=== PATIENT | male | born 1970 | race African-American/Black ===

== ENCOUNTER 2016-09-07 12:29 | Emergency (ER) | payer MEDICAID ==
[~2016-09-07] VITALS: Ht 167.6 cm; Wt 120.0 kg
[~2016-09-07 12:29] MED LIST: CIPR500T4 PO; LORTA5 PO; METR-1 PO
[2016-09-07 12:32] VITALS: BP 151/103; PULSE 122; RESP 20; TEMP 98.1; O2SAT 93
--- NOTE | 2016-09-07 12:58 | PD ---
HPI Chief Complaint: Musculoskeletal Complaint Time Seen by Provider: 12:58 Travel History International Travel<30 days: No Contact w/Intl Traveler<30days: No Traveled to known affect area: No History of Present Illness HPI 46-year-old male presents to the emergency department for evaluation of right upper arm injury that occurred just prior to arrival. Patient states he was lifting heavy furniture when he felt a pull in his right arm. He denies a traumatic injury. Patient denies any fevers or chills. He states this occurred just prior to arrival. Patient has not tried anything over-the- counter for his pain. He denies any loss of sensation. Patient reports no chronic medical problems. He states he takes no prescribed medications. Patient denies any other complaints at this time. PFSH Past Medical History Diabetes: No Diminished Hearing: No Gastrointestinal Disorders: Yes (HX GI BLEED; ANAL FISSURE) Genitourinary: No Hypertension: Yes Musculoskeletal: Yes (per hx..LIGAMENT INJURIES JHON ANKLES, RT HAND;FX RT ANKLE RT. HAND) Psychiatric: Yes (schizophrenia) Reproductive: No Immunizations Current: Yes Schizophrenia: Yes Social History Alcohol Use: No (PT DENIES) Tobacco Use: No (PT DENIES) Substance Use: No (PT DENIES) Allergies-Medications (Allergen,Severity, Reaction): Coded Allergies: No Known Allergies (Verified , 01/08/16) Reported Meds & Prescriptions Reported Meds & Active Scripts Active Robaxin (Methocarbamol) 750 Mg Tab 750 Mg PO TID PRN Ibuprofen 600 Mg Tab 600 Mg PO TID PRN Ney 5-325 mg (Hydrocodone-Acetaminophen 5-325 mg) 1 Tab 1 Tab PO Q6H PRN Flagyl (Metronidazole) 500 Mg Tab 500 Mg PO BID Cipro (Ciprofloxacin HCl) 500 Mg Tab 500 Mg PO BID 7 Days Review of Systems Except as stated in HPI: all other systems reviewed are Neg Physical Exam Narrative GENERAL: Well-developed well-nourished male patient, ambulatory. Afebrile. SKIN: Warm and dry. Tissues are soft to the right upper arm. Patient has tenderness over the right biceps muscle. HEAD: Normocephalic. Atraumatic. EYES: No scleral icterus. No injection or drainage. NECK: Supple, trachea midline. No JVD or lymphadenopathy. CARDIOVASCULAR: Regular rate and rhythm without murmurs, gallops, or rubs. Right radial pulse is 2+. RESPIRATORY: Breath sounds equal bilaterally. No accessory muscle use. Lungs sounds are clear to auscultation. GASTROINTESTINAL: Abdomen soft, non-tender, nondistended. MUSCULOSKELETAL: No cyanosis, or edema. Patient has full range of motion of all joints of the right upper extremity. He has full sensation to the distal right upper extremity. He has a normal grasp strength in the right hand. No deformity BACK: Nontender without obvious deformity. No CVA tenderness. Data Data Last Documented VS Vital Signs Date Time Temp Pulse Resp B/P Pulse Ox O2 Delivery O2 Flow Rate FiO2 09/07/16 13:10 94 16 168/89 99 09/07/16 12:32 98.1 Room Air Orders Ibuprofen (Motrin) (09/07/16 13:00) Methocarbamol (Robaxin) (09/07/16 13:00) Splint Or Brace Apply/Monitor (09/07/16 12:58) MDM Medical Decision Making Medical Screen Exam Complete: Yes Emergency Medical Condition: Yes Medical Record Reviewed: Yes Differential Diagnosis Muscle strain versus muscle spasm versus muscle tear Narrative Course 46-year-old male presents to the emergency department for evaluation of right biceps muscle strain that occurred just prior to arrival. He denies any traumatic injury. Physical exam is reassuring. There is no evidence of bony injury on exam. Tissues are soft and there is no evidence of a compartment syndrome. Patient is instructed to ice, rest. He will be given a sling for comfort. He is instructed to do range of motion exercises to prevent any complications. He will be discharged with a prescription for ibuprofen and Robaxin. He is encouraged to follow up with a primary care physician or orthopedist if pain continues or worsens. Patient is agreeable. Diagnosis Primary Impression: Strain of right biceps muscle Qualified Code: S46.111A - Strain of right biceps muscle, initial encounter Referrals: Primary Care Physician call for appointment Patient Instructions: General Instructions, Muscle Strain (ED) Departure Forms: Tests/Procedures, Work Release Enter return to work date: Sep 09, 2016 Additional Instructions: Ice for 20 minutes 4-5 times daily. Wear sling for comfort. Make sure you do range of motion exercises. Take ibuprofen as instructed as needed with food for pain. Take Robaxin as directed as needed. Follow-up with a primary care physician or orthopedist if pain continues or worsens. Return to the emergency department for any acute worsening of symptoms. Med/Other Pt SpecificInfo: Prescription(s) given Scripts Methocarbamol (Robaxin)750 Mg [id number] Mg PO TID PRN (MUSCLE SPASM) #21 TAB Ref 0 Prov:Katie Negrete 09/07/16 Ibuprofen 600 Mg [id number] Mg PO TID PRN (PAIN SCALE 1 TO 10) #21 TAB Ref 0 Prov:Katie Negrete 09/07/16 Disposition: 01 DISCHARGE HOME Condition: Stable Katie Negrete Sep 07, 2016 12:58
[2016-09-07] MEDS ORDERED: METHOCARBAMOL 500 MG TAB PO ONE (13:00)
[2016-09-07] MEDS ORDERED: IBUPROFEN 600 MG TAB PO ONE (13:00)
[2016-09-07] MEDS ORDERED: IBUP-232 PO (13:04)
[2016-09-07] MEDS ORDERED: ROBA750T PO (13:04)
[2016-09-07 13:10] VITALS: BP 168/89
== END 2016-09-07 13:16 | disposition home or self-care (01) ==
LOC: NEPB 12:29
DX: S46.811A Strain of other muscles, fascia and tendons at shoulder and upper arm level, right arm, initial encounter (principal); I10 Essential (primary) hypertension; F20.9 Schizophrenia, unspecified; X50.0XXA Overexertion from strenuous movement or load, initial encounter; Y93.89 Activity, other specified; Y92.89 Other specified places as the place of occurrence of the external cause; Y99.8 Other external cause status
CPT/HCPCS: 99283

== ENCOUNTER 2017-01-28 08:51 | Emergency (ER) | payer MEDICAID ==
[~2017-01-28] VITALS: Ht 167.6 cm; Wt 120.0 kg
[~2017-01-28 08:51] MED LIST changes: +IBUP-232 PO; +ROBA750T PO
[2017-01-28 08:53] VITALS: BP 160/102; PULSE 102; RESP 20; TEMP 98.8; O2SAT 98
[2017-01-28 08:57] VITALS: PULSE 96; RESP 18
--- NOTE | 2017-01-28 09:12 | PD ---
HPI Chief Complaint: Cold / Flu Symptoms Time Seen by Provider: 09:00 Travel History International Travel<30 days: No Contact w/Intl Traveler<30days: No Traveled to known affect area: No History of Present Illness HPI 46-year-old male with no significant past medical history presents for evaluation of cough. Symptoms started 1 week ago. The cough is productive with yellow phlegm. He has had occasional blood-tinged sputum production. He he has been using [id number] NyQuil but symptoms persist which prompted evaluation. He denies nausea, vomiting, chest pain or shortness of breath, fevers or chills, abdominal pain, flank pain, melena, right red blood per rectum , leg pain or swelling, anticoagulant use, NSAID use, history of DVT or PE. No sick contacts. No recent travel. No other complaints. PFSH Past Medical History Diabetes: No Diminished Hearing: No Gastrointestinal Disorders: Yes (HX GI BLEED; ANAL FISSURE) Genitourinary: No Hypertension: Yes Musculoskeletal: Yes (per hx..LIGAMENT INJURIES JHON ANKLES, RT HAND;FX RT ANKLE RT. HAND) Psychiatric: Yes (schizophrenia) Reproductive: No Immunizations Current: Yes Schizophrenia: Yes Social History Alcohol Use: No (PT DENIES) Tobacco Use: No (PT DENIES) Substance Use: No (PT DENIES) Allergies-Medications (Allergen,Severity, Reaction): Coded Allergies: No Known Allergies (Verified , 01/28/17) Reported Meds & Prescriptions Reported Meds & Active Scripts Active Tessalon Perles (Benzonatate) 100 Mg Cap 200 Mg PO TID PRN Robaxin (Methocarbamol) 750 Mg Tab 750 Mg PO TID PRN Ibuprofen 600 Mg Tab 600 Mg PO TID PRN Review of Systems Except as stated in HPI: all other systems reviewed are Neg Physical Exam Narrative GENERAL: Well-developed well-nourished male in no acute distress SKIN: Warm and dry. HEAD: Atraumatic. Normocephalic. EYES: Pupils equal and round. No scleral icterus. No injection or drainage. ENT: No nasal bleeding or discharge. Mucous membranes pink and moist. NECK: Trachea midline. No JVD. CARDIOVASCULAR: Regular rate and rhythm. No murmur appreciated. RESPIRATORY: No accessory muscle use. Clear to auscultation. Breath sounds equal bilaterally. GASTROINTESTINAL: Abdomen soft, non-tender, nondistended. Hepatic and splenic margins not palpable. MUSCULOSKELETAL: No obvious deformities. No edema NEUROLOGICAL: Awake and alert. No obvious cranial nerve deficits. Motor grossly within normal limits. Normal speech. PSYCHIATRIC: Appropriate mood and affect; insight and judgment normal. Data Data Last Documented VS Vital Signs Date Time Temp Pulse Resp B/P Pulse Ox O2 Delivery O2 Flow Rate FiO2 01/28/17 08:57 96 18 01/28/17 08:53 98.8 160/102 98 Room Air Orders Chest, Single Ap (01/28/17 ) [facility] Medical Decision Making Medical Screen Exam Complete: Yes Emergency Medical Condition: Yes Medical Record Reviewed: Yes Differential Diagnosis Bronchitis, bronchiectasis, pneumonia, PE, pneumothorax Narrative Course This is a 46-year-old otherwise healthy male who presents with 1 week of cough with yellow sputum production, occasional blood-tinged sputum. He appears well. His lungs sound clear. He is not tachycardic, pale, hypoxic, tachypneic. His abdomen is soft and nontender. I suspect bronchitis as the etiology of his symptoms. Chest x-ray was ordered to assess for pneumonia and it was negative. The patient is being discharged with cough suppressant medication. Diagnosis Primary Impression: Bronchitis Additional Instructions: Stay well-hydrated and well-nourished. Medication as needed. Follow-up with primary care physician and return for any emergent medical conditions. Med/Other Pt SpecificInfo: Prescription(s) given Scripts Benzonatate (Tessalon Perles)100 Mg [id number] Mg PO TID PRN (COUGH) #30 CAP Ref 0 Prov:William Solo MD 01/28/17 Disposition: 01 DISCHARGE HOME Condition: Stable Mayank Zuluaga Jan 28, 2017 09:11
--- NOTE | 2017-01-28 09:40 | RADRPT ---
EXAM DATE/TIME: 01/28/2017 09:31 [place] COMPARISON: No previous studies available for comparison. INDICATIONS : Cough MEDICAL HISTORY : None. SURGICAL HISTORY : None. ENCOUNTER: Initial ACUITY: 1 week PAIN SCORE: 10 LOCATION: Bilateral chest FINDINGS: Single AP view of the chest. The lungs are clear. Cardiomediastinal silhouette within normal limits. No evidence of pleural effusion or pneumothorax. CONCLUSION: No acute cardiopulmonary disease identified. Michi Ordonez MD on January 28, 2017 at 9:35 Board Certified Radiologist. This report was verified electronically.
[2017-01-28] MEDS ORDERED: BENZ100 PO (09:43)
== END 2017-01-28 09:56 | disposition home or self-care (01) ==
LOC: NEPD 08:51
DX: J40 Bronchitis, not specified as acute or chronic (principal); I10 Essential (primary) hypertension
CPT/HCPCS: 71010; 99283

== ENCOUNTER 2017-11-08 22:03 | Inpatient (IN) | payer MEDICAID, OTHER ==
[~2017-11-08] VITALS: Ht 167.6 cm; Wt 110.6 kg
[~2017-11-08 22:03] MED LIST changes: +BENZ100 PO; -CIPR500T4 PO; -LORTA5 PO; -METR-1 PO
[2017-11-08 22:31] VITALS: BP 176/95; PULSE 92; RESP 20; TEMP 96.9; O2SAT 97
[2017-11-08 23:06] LABS: AUTOMATED NEUTROPHIL # 4.7 TH/MM3 (1.8-7.7); BASOPHIL # 0.1 TH/MM3 (0-0.2); BASOPHIL % 0.6 % (0.0-2.0); EOSINOPHIL # 0.3 TH/MM3 (0-0.4); EOSINOPHIL % 2.9 % (0.0-4.0); HEMATOCRIT 45.6 % (39.0-51.0); HEMOGLOBIN 15.4 GM/DL (13.0-17.0); LYMPH % 36.6 % (9.0-44.0); LYMPHOCYTE # 3.3 TH/MM3 (1.0-4.8); MEAN CELL VOLUME 90.8 FL (80.0-100.0); MEAN CORPUSCULAR HEMOGLOBIN 30.7 PG (27.0-34.0); MEAN CORPUSCULAR HGB CONC 33.8 % (32.0-36.0); MEAN PLATELET VOLUME 8.1 FL (7.0-11.0); MONO % 7.4 % (0.0-8.0); MONOCYTE # 0.7 TH/MM3 (0-0.9); NEUT % 52.5 % (16.0-70.0); PLATELET COUNT 289 TH/MM3 (150-450); RED BLOOD COUNT 5.03 MIL/MM3 (4.50-5.90); RED CELL DISTRIBUTION WIDTH 13.6 % (11.6-17.2)
--- NOTE | 2017-11-08 23:08 | PD ---
HPI Chief Complaint: Psychiatric Symptoms Time Seen by Provider: 22:56 Travel History International Travel<30 days: No Contact w/Intl Traveler<30days: No Traveled to known affect area: No History of Present Illness HPI 47-year-old male with history of schizophrenia presents under an export today signed by a telephone ad taker for psychiatric evaluation. According to his paperwork the case managers at [facility] went before a telephone ad taker and testify that the patient has been paranoid, feeling that the staff at [facility] is attempting to poison him. He is prescribed Haldol and trazodone and he reports that over the past several days he has not been taking it because he does not need to anymore. He denies any paranoia. He denies any suicidal or homicidal ideation, auditory or visual hallucinations, drug or alcohol use. He has no medical complaints at this time. [facility] Past Medical History Diabetes: No Diminished Hearing: No Gastrointestinal Disorders: Yes (HX GI BLEED; ANAL FISSURE) Genitourinary: No Hypertension: Yes Musculoskeletal: Yes (per hx..LIGAMENT INJURIES JHON ANKLES, RT HAND;FX RT ANKLE RT. HAND) Psychiatric: Yes (schizophrenia) Reproductive: No Immunizations Current: Yes Schizophrenia: Yes Social History Alcohol Use: No Tobacco Use: No Substance Use: No Allergies-Medications (Allergen,Severity, Reaction): Coded Allergies: No Known Allergies (Verified , 01/28/17) Reported Meds & Prescriptions Reported Meds & Active Scripts Active Robaxin (Methocarbamol) 750 Mg Tab 750 Mg PO TID PRN Ibuprofen 600 Mg Tab 600 Mg PO TID PRN Review of Systems Except as stated in HPI: all other systems reviewed are Neg Physical Exam Narrative GENERAL: Pleasant well-developed well-nourished male in no acute distress SKIN: Warm and dry. HEAD: Atraumatic. Normocephalic. EYES: Pupils equal and round. No scleral icterus. No injection or drainage. ENT: No nasal bleeding or discharge. Mucous membranes pink and moist. NECK: Trachea midline. No JVD. CARDIOVASCULAR: Regular rate and rhythm. No murmur appreciated. RESPIRATORY: No accessory muscle use. Clear to auscultation. Breath sounds equal bilaterally. GASTROINTESTINAL: Abdomen soft, non-tender, nondistended. Hepatic and splenic margins not palpable. MUSCULOSKELETAL: No obvious deformities. No clubbing. No cyanosis. No edema. NEUROLOGICAL: Awake and alert. No obvious cranial nerve deficits. Motor grossly within normal limits. Normal speech. PSYCHIATRIC: Appropriate mood and affect; insight and judgment limited Data Data Last Documented VS Vital Signs Date Time Temp Pulse Resp B/P (MAP) Pulse Ox O2 Delivery O2 Flow Rate FiO2 11/08/17 22:31 96.9 92 20 176/95 (122) 97 Room Air Orders Orders Complete Blood Count With Diff (11/08/17 22:31) Comprehensive Metabolic Panel (11/08/17 22:31) Thyroid Stimulating Hormone (11/08/17 22:31) Psych Screen (11/08/17 22:31) Drug Screen, Random Urine (11/08/17 22:31) Alcohol (Ethanol) (11/08/17 22:31) Labs Laboratory Tests Test 11/08/17 22:41 White Blood Count 9.0 TH/MM3 Red Blood Count 5.03 MIL/MM3 Hemoglobin 15.4 GM/DL Hematocrit 45.6 % Mean Corpuscular Volume 90.8 FL Mean Corpuscular Hemoglobin 30.7 PG Mean Corpuscular Hemoglobin Concent 33.8 % Red Cell Distribution Width 13.6 % Platelet Count 289 TH/MM3 Mean Platelet Volume 8.1 FL Neutrophils (%) (Auto) 52.5 % Lymphocytes (%) (Auto) 36.6 % Monocytes (%) (Auto) 7.4 % Eosinophils (%) (Auto) 2.9 % Basophils (%) (Auto) 0.6 % Neutrophils # (Auto) 4.7 TH/MM3 Lymphocytes # (Auto) 3.3 TH/MM3 Monocytes # (Auto) 0.7 TH/MM3 Eosinophils # (Auto) 0.3 TH/MM3 Basophils # (Auto) 0.1 TH/MM3 CBC Comment DIFF FINAL Differential Comment Blood Urea Nitrogen 12 MG/DL Creatinine 1.58 MG/DL Random Glucose 88 MG/DL Total Protein 7.1 GM/DL Albumin 3.7 GM/DL Calcium Level 8.6 MG/DL Alkaline Phosphatase 67 U/L Aspartate Amino Transf (AST/SGOT) 29 U/L Alanine Aminotransferase (ALT/SGPT) 40 U/L Total Bilirubin 0.4 MG/DL Sodium Level 144 MEQ/L Potassium Level 4.1 MEQ/L Chloride Level 107 MEQ/L Carbon Dioxide Level 31.7 MEQ/L Anion Gap 5 MEQ/L Estimat Glomerular Filtration Rate 58 ML/MIN Thyroid Stimulating Hormone 3rd Gen 0.992 uIU/ML Urine Opiates Screen NEG Urine Barbiturates Screen NEG Urine Amphetamines Screen NEG Urine Benzodiazepines Screen NEG Urine Cocaine Screen NEG Urine Cannabinoids Screen NEG Ethyl Alcohol Level LESS THAN 3 MG/DL MDM Medical Decision Making Medical Screen Exam Complete: Yes Emergency Medical Condition: Yes Medical Record Reviewed: Yes Differential Diagnosis Medication noncompliance, schizophrenia, acute psychosis, substance-induced mood disorder, adjustment reaction Narrative Course 47-year-old male presents under exparte for psychiatric evaluation. Mental health screening discussed with the patient. Psychiatric screen ordered. The patient is medically cleared for psychiatric disposition. Diagnosis Primary Impression: Medical clearance for psychiatric admission Mayank Zuluaga Nov 08, 2017 23:08
[2017-11-08 23:28] LABS: ALBUMIN 3.7 GM/DL (3.4-5.0); ALT (GPT) 40 U/L (12-78); AST (GOT) 29 U/L (15-37); BICARBONATE 31.7 MEQ/L (21.0-32.0); BLOOD UREA NITROGEN 12 MG/DL (7-18); CALCIUM 8.6 MG/DL (8.5-10.1); CHLORIDE 107 MEQ/L (98-107); CREATININE 1.58 MG/DL (0.60-1.30); GLOMERULAR FILTRATION RATE 58 ML/MIN (>89); GLUCOSE,RANDOM 88 MG/DL (74-106); SODIUM (NA) 144 MEQ/L (136-145)
[2017-11-08 23:37] LABS: ALKALINE PHOSPHATASE 67 U/L (45-117); TOTAL BILIRUBIN ADULT 0.4 MG/DL (0.2-1.0); TOTAL PROTEIN 7.1 GM/DL (6.4-8.2)
[2017-11-09 06:41] VITALS: BP 145/90; PULSE 81; RESP 20; O2SAT 98
[2017-11-09 10:00] VITALS: BP 147/82; PULSE 85; RESP 20
[2017-11-09] MEDS ORDERED: HALO10TA PO (12:11)
[2017-11-09] MEDS ORDERED: TRAZ100T10 PO (12:11)
[2017-11-09] MEDS ORDERED: TRIH2 PO (12:12)
[2017-11-09] MEDS ORDERED: OMEP40CA2 PO (12:12)
--- NOTE | 2017-11-09 13:08 | PD ---
History of Present Illness Chief Complaint: Schizophrenia Time Seen by Provider: 12:48 Travel History International Travel<30 Days: No Contact w/Intl Traveler<30days: No Known affected area: No Legal Status Legal Status: Ex Parte History of Present Illness: 47-year-old single, -[place] male presents to the emergency department under an Ex Parte act which was filed by his [facility] porter sample case. According to the document has had some bizarre behavior, has made threatening comments, believes that the [facility] staff is trying to poison him, and has been ripping out wires in his apartment. His [facility] porter sample case believes he has been noncompliant with his medications. Initially, patient reported to the ED provider that he did not take his medications because he "did not need them". He since claims that he is compliant with them. Reviewed electronic medical record, labs, discuss case with staff. Patient was evaluated in his room and J pod. Patient speech is clear, loud, rapid, and pressured. His thought process is bizarre and disorganized at times. He is alert and oriented to person and place at least. His mood is angry and his affect is irritable. When asked if he had been taking his medication he initially stated he was, but then became irritated and stated "if I said I was not would you be mad at me what does it matter". He then went on to say that he did not need to take his medication as he had "gained a lot of seniority, and is way past that all the way to royalty". He declined to elaborate on that statement. He states that he lives by himself and denies using alcohol drugs or smoking tobacco. He denies having suicidal ideation, thoughts of harming others, visual or auditory hallucinations. He reports that he has not attempted suicide for a "long time". He receives Social Security disability for his mental illness. His toxicology screen is negative. [facility] Past Medical History Diabetes: No Diminished Hearing: No Gastrointestinal Disorders: Yes (HX GI BLEED; ANAL FISSURE) Genitourinary: No Hypertension: Yes Musculoskeletal: Yes (per hx..LIGAMENT INJURIES JHON ANKLES, RT HAND;FX RT ANKLE RT. HAND) Psychiatric: Yes (schizophrenia) Reproductive: No Immunizations Current: Yes Schizophrenia: Yes Psychiatric History Psychiatric History History of schizophrenia. Patient is followed by [facility]. He appears to be noncompliant with his medications. Hx Psychiatric Treatment: Patient with a hx of schizophrenia. Last [facility] admit was December 2013. History of Inpatient Treatment: Yes Guns or firearms in home: No Social History He reports that he lives by himself, does not drink, smoke, or use drugs. Hx Alcohol Use: No Hx Tobacco Use: No Hx Substance Use: No Substance Use Type: Crack, Cocaine Hx of Substance Use Treatment: Yes Allergies-Medications (Allergen,Severity, Reaction): Coded Allergies: No Known Allergies (Verified Allergy, Unknown, 11/09/17) Per [facility] [phone]. Reported Meds & Prescriptions Reported Meds & Active Scripts Active Reported Omeprazole 40 Mg Cap 40 Mg PO DAILY Trihexyphenidyl (Trihexyphenidyl HCl) 2 Mg Tab 2 Mg PO HS Trazodone (Trazodone HCl) 100 Mg Tablet 100 Mg PO HS Haloperidol 10 Mg Tab 10 Mg PO HS Mental Status Examination Appearance: Appropriate Consciousness: Alert Orientation: Person, Place (At least) Motor Activity: Normal gait Speech: Pressured, Rapid Language: Adequate Fund of Knowledge: Inadequate Attention and Concentration: Easily Distracted Memory: Unremarkable Mood: Angry, Irritable Affect: Irritable Thought Process & Associations: Disorganized, Other (Reports having "seniority all the way to royalty") Thought Content: Bizarre thinking, Delusional (Believes [facility] staff attempting to poison him) Hallucination Type: None Delusion Type: Paranoid Suicidal Ideation: No Suicidal Plan: No Suicidal Intention: No Homicidal Ideation: No Homicidal Plan: No Homicidal Intention: No Insight: Poor Judgment: Poor MDM Medical Decision Making Medical Record Reviewed: Yes Assessment/Plan 47-year-old single, -[place] male who presents to this facility under an Ex Parte for threats made against [facility] staff, bizarre behavior, paranoid delusions, noncompliance with medication. During the interview patient did exhibit some of these behaviors. His speech although clear was rapid and pressured and bizarre at times. He became defensive when asked about his medications and stated that he did not need them any longer due to his seniority and that he had in fact gone all the way to royalty. He claims that he is done nothing wrong and that he is being "set up" by the act personnel. Due to his threats against his mental health team, patient will be admitted to the 2700 unit for further evaluation and medication adjustment as needed. Orders Orders Complete Blood Count With Diff (11/08/17 22:31) Comprehensive Metabolic Panel (11/08/17 22:31) Thyroid Stimulating Hormone (11/08/17 22:31) Psych Screen (11/08/17 22:31) Drug Screen, Random Urine (11/08/17 22:31) Alcohol (Ethanol) (11/08/17 22:31) Diet Regular Basic (11/09/17 Breakfast) Diet Regular Basic (11/09/17 Lunch) Results Vital Signs Date Time Temp Pulse Resp B/P (MAP) Pulse Ox O2 Delivery O2 Flow Rate FiO2 11/09/17 10:00 85 20 147/82 (103) Room Air 11/09/17 06:41 81 20 145/90 (108) 98 Room Air 11/08/17 22:31 96.9 92 20 176/95 (122) 97 Room Air Laboratory Tests Test 11/08/17 22:41 White Blood Count 9.0 Red Blood Count 5.03 Hemoglobin 15.4 Hematocrit 45.6 Mean Corpuscular Volume 90.8 Mean Corpuscular Hemoglobin 30.7 Mean Corpuscular Hemoglobin Concent 33.8 Red Cell Distribution Width 13.6 Platelet Count 289 Mean Platelet Volume 8.1 Neutrophils (%) (Auto) 52.5 Lymphocytes (%) (Auto) 36.6 Monocytes (%) (Auto) 7.4 Eosinophils (%) (Auto) 2.9 Basophils (%) (Auto) 0.6 Neutrophils # (Auto) 4.7 Lymphocytes # (Auto) 3.3 Monocytes # (Auto) 0.7 Eosinophils # (Auto) 0.3 Basophils # (Auto) 0.1 CBC Comment DIFF FINAL Differential Comment Blood Urea Nitrogen 12 Creatinine 1.58 Random Glucose 88 Total Protein 7.1 Albumin 3.7 Calcium Level 8.6 Alkaline Phosphatase 67 Aspartate Amino Transf (AST/SGOT) 29 Alanine Aminotransferase (ALT/SGPT) 40 Total Bilirubin 0.4 Sodium Level 144 Potassium Level 4.1 Chloride Level 107 Carbon Dioxide Level 31.7 Anion Gap 5 Estimat Glomerular Filtration Rate 58 Thyroid Stimulating Hormone 3rd Gen 0.992 Urine Opiates Screen NEG Urine Barbiturates Screen NEG Urine Amphetamines Screen NEG Urine Benzodiazepines Screen NEG Urine Cocaine Screen NEG Urine Cannabinoids Screen NEG Ethyl Alcohol Level LESS THAN 3 Diagnosis Primary Impression: Schizophrenia, acute Admitting Information Admitting Physician Requests: Admit Leticia Hoffman Nov 09, 2017 13:08
[2017-11-09] MEDS ORDERED: ACETAMINOPHEN 325 MG TAB PO PRN (13:15)
[2017-11-09] MEDS ORDERED: ALUMINUM/MAGNESIUM/SIMETH 30 ML CUP PO PRN (13:15)
[2017-11-09] MEDS ORDERED: MAGNESIUM HYDROXIDE SUSP 30 ML CUP PO PRN (13:15)
[2017-11-09] MEDS ORDERED: LORazepam 1 MG TAB PO PRN (14:00)
[2017-11-09] MEDS ORDERED: LORazepam 2 MG/ML VIAL IM PRN (14:00)
[2017-11-09] MEDS ORDERED: traZODone HCL 50 MG TAB PO PRN (14:00)
[2017-11-09] MEDS ORDERED: TRIHEXYPHENIDYL HCL 2 MG TAB PO PRN (14:00)
[2017-11-09] MEDS ORDERED: HALOPERIDOL LACTATE 5 MG/ML AMP IM PRN (14:00)
--- NOTE | 2017-11-09 14:11 | HHI.HP ---
Provisional Diagnosis Admission Date Nov 09, 2017 at 13:13 [place] I. 1. Schizophrenia, paranoid type, acute exacerbation [place] II. Deferred Certification of Person's Competence To Provide Express and Informed Consent I have personally examined Hussain Araujo , a person being served at [facility] on, Nov 09, 2017 13:58. Express and informed consent means consent voluntarily given in writing, by a competent person, after sufficient explanation and disclosure of the subject matter involved to enable the person to make a knowing and willful decision without any element of force, fraud, deceit, duress, or other form of constraint or coercion. This person is 18 years of age or older, is not now known to be incompetent to consent to treatment with a guardian advocate, and does not have a health care surrogate or proxy currently making medical treatment decisions. I have found this person to be one of the following: [] Competent to provide express and informed consent, as defined above, for voluntary admission to this facility and is competent to provide express and informed consent for treatment. He/she has the consistent capacity to make well reasoned, willful, and knowing decisions concerning his or her medical or mental health treatment. The person fully and consistently understands the purpose of the admission for examination/placement and is fully capable of personally exercising all rights [place] [X] Incompetent to provide express and informed consent to voluntary admission, and this is incompetent to provide express and informed consent to treatment. The person must be transferred to involuntary status and a petition for a guardian advocate filed with the Circuit Court. [] Refusing to provide express and informed consent to voluntary admission but is competent to provide express and informed consent for treatment. The person must be discharged or transferred to involuntary status. Form shall be completed within 24 hours of a person's arrival at the receiving facility and filed in the clinical record of each person: 1. Admitted on a voluntary basis 2. Permitted to provide express and informed consent to his/her own treatment 3. Allowed to transfer from involuntary to voluntary status 4. Prior to permitting a person to consent to his or her own treatment after having been previously found incompetent to consent to treatment. History of Present Illness Capacity: Lacks Capacity Psych Chief Complaint: Psychosis HPI Mr. Araujo is a 47-year-old male with a history of schizophrenia who presents under an ex parte order initiated by his outpatient housing case manager Renu Velez. Ex parte order reviewed. It alleges that the patient has made threatening comments to staff and has been yelling at peers. It also notes that he was trying to pull wires from an electrical box. It further alleges that the patient is not taking his medications as prescribed. Reviewing the electronic medical record, I note that the patient was admitted here most recently under Dr. Walls in 2014. Patient seen and examined. Chart reviewed. Case discussed with nurse practitioner who evaluated the patient earlier today. On my examination today, the patient presents as guarded and irritable. He insists "I had all this under control." He denies audiovisual hallucinations but appears internally stimulated. Regarding the allegations in the ex parte says "it's all a fabrication and lies." He denies any SI or HI but seems unreliable to contract for safety. In addition to paranoia and he seems to exhibit voodoo preoccupation. No depressive or hypomanic/manic symptoms elicited. Remainder of psychiatric ROS is negative. No acute physical complaints. Past psychiatric history: Patient reports a history of schizophrenia. He follows at [facility]. His most recent psychiatric admission was reportedly here at [facility]. He endorses a history of suicide attempts in the past but is evasive regarding the time and mechanism of these suicide attempts. Family history: Patient endorses a family history of mental illness in his father's side of the family noting "they talk to themselves." Chemical dependency history: The patient denies any abuse of drugs or alcohol. Social history: The patient is homeless but apparently has been residing in some sort of transitional housing. He has his GED. He collects SSI. He is single with no children. Denies any history. He reports that he has some sort of legal issue and has a court date but says "I don't want to talk about it." He denies any access to guns or firearms. He believes in God. He denies any history of abuse or neglect. I endeavored to obtain collateral information from housing case manager Renu Velez at the number listed in the ex parte, but it seems this is a fax number. I was able to reach patient's sister Karen Araujo at the number listed in the EMR. She notes that she saw the patient yesterday and he was visibly responding to internal stimuli. She also notes that the patient called her from the emergency department verbalizing paranoid ideation. She believes that he is struggling with his mental illness presently. She is willing to act as the patient's healthcare surrogate and is in agreement with the plan as outlined below. I called over to [facility] to get patient's med list. Patient takes Haldol 10mg qHS, trazodone 100mg qHS, Artane 2mg qHS. These were last written 10/24/17. Review of Systems ROS Limitations: Psychotic, Poor Historian Except as stated in HPI: all other systems reviewed are Neg Past Family Social History Coded Allergies: No Known Allergies (Verified Allergy, Unknown, 11/09/17) Per [facility] [phone]. Past Medical History Includes a history of diverticulitis per patient Reported Medications Omeprazole (Omeprazole) 40 Mg Cap, 40 MG PO DAILY, #30 CAP 0 Refills 11/09/17 Trihexyphenidyl (Trihexyphenidyl) 2 Mg Tab, 2 MG PO HS for Parkinson Disease Mgmt, TAB 0 Refills 11/09/17 Trazodone (Trazodone) 100 Mg Tablet, 100 MG PO HS for Control Depression, #30 TAB 0 Refills 11/09/17 Haloperidol (Haloperidol) 10 Mg Tab, 10 MG PO HS, TAB 0 Refills 11/09/17 Discontinued Scripts Methocarbamol (Robaxin) 750 Mg Tab, 750 MG PO TID Y for MUSCLE SPASM, #21 TAB 0 Refills Prov:Katie Negrete 09/07/16 Ibuprofen (Ibuprofen) 600 Mg Tab, 600 MG PO TID Y for PAIN SCALE 1 TO 10, #21 TAB 0 Refills Prov:Katie Negrete 09/07/16 Benzonatate (Tessalon Perles) 100 Mg Cap, 200 MG PO TID Y for COUGH, #30 CAP 0 Refills Prov:William Solo MD 01/28/17 Current Medications Medications (Trade) Dose Ordered Sig/Chay Route Start Time Stop Time Status Last Admin (Tylenol) 650 mg Q4H PRN PO 11/09/17 13:15 (Milk Of Magnesia Liq) 30 ml DAILY PRN PO 11/09/17 13:15 (Mag-Al Plus Susp Liq) 30 ml Q6H PRN PO 11/09/17 13:15 Patient's Strengths (min. 2) Supportive sister. Verbally fluent. Physical Exam Physical exam completed by ED provider. On my examination today, the patient appears to be in no acute physical distress. No motor abnormalities noted. Labs and vitals reviewed: Vital Signs Vital Signs Date Time Temp Pulse Resp B/P (MAP) Pulse Ox O2 Delivery O2 Flow Rate FiO2 11/09/17 10:00 85 20 147/82 (103) Room Air 11/09/17 06:41 98 11/08/17 22:31 96.9 Lab Results Test 11/08/17 22:41 White Blood Count 9.0 TH/MM3 Red Blood Count 5.03 MIL/MM3 Hemoglobin 15.4 GM/DL Hematocrit 45.6 % Mean Corpuscular Volume 90.8 FL Mean Corpuscular Hemoglobin 30.7 PG Mean Corpuscular Hemoglobin Concent 33.8 % Red Cell Distribution Width 13.6 % Platelet Count 289 TH/MM3 Mean Platelet Volume 8.1 FL Neutrophils (%) (Auto) 52.5 % Lymphocytes (%) (Auto) 36.6 % Monocytes (%) (Auto) 7.4 % Eosinophils (%) (Auto) 2.9 % Basophils (%) (Auto) 0.6 % Neutrophils # (Auto) 4.7 TH/MM3 Lymphocytes # (Auto) 3.3 TH/MM3 Monocytes # (Auto) 0.7 TH/MM3 Eosinophils # (Auto) 0.3 TH/MM3 Basophils # (Auto) 0.1 TH/MM3 CBC Comment DIFF FINAL Differential Comment Blood Urea Nitrogen 12 MG/DL Creatinine 1.58 MG/DL Random Glucose 88 MG/DL Total Protein 7.1 GM/DL Albumin 3.7 GM/DL Calcium Level 8.6 MG/DL Alkaline Phosphatase 67 U/L Aspartate Amino Transf (AST/SGOT) 29 U/L Alanine Aminotransferase (ALT/SGPT) 40 U/L Total Bilirubin 0.4 MG/DL Sodium Level 144 MEQ/L Potassium Level 4.1 MEQ/L Chloride Level 107 MEQ/L Carbon Dioxide Level 31.7 MEQ/L Anion Gap 5 MEQ/L Estimat Glomerular Filtration Rate 58 ML/MIN Thyroid Stimulating Hormone 3rd Gen 0.992 uIU/ML Urine Opiates Screen NEG Urine Barbiturates Screen NEG Urine Amphetamines Screen NEG Urine Benzodiazepines Screen NEG Urine Cocaine Screen NEG Urine Cannabinoids Screen NEG Ethyl Alcohol Level LESS THAN 3 MG/DL Labs reviewed. Decreased GFR appears to be chronic and within patient's baseline historical range. Mental Status Examination Appearance: Appropriate Consciousness: Alert Orientation: Person, Place (at least) Motor Activity: Normal gait Speech: Unremarkable Language: Adequate Fund of Knowledge: Inadequate Attention and Concentration: Easily Distracted Memory: Unremarkable Mood: Irritable Affect: Irritable, Other (dysphoric) Thought Process & Associations: Tangential Thought Content: Bizarre thinking, Delusional Hallucination Type: Other (appears internally stimulated) Delusion Type: Paranoid, Other (possible voodoo preoccupation) Suicidal Ideation: No (unreliable to contract for safety) Suicidal Plan: No Suicidal Intention: No Homicidal Ideation: No (unreliable to contract for safety) Homicidal Plan: No Homicidal Intention: No Insight: Poor Judgment: Poor Assessment & Plan Problem List: (1) Acute exacerbation of chronic paranoid schizophrenia ICD Codes: F20.0 - Paranoid schizophrenia Assessment & Plan 47-year-old male with psychiatric history as detailed above who presents under ex parte order from housing case manager. On my examination today, patient presents as irritable and paranoid. Ex parte raises concern for medication nonadherence. Collateral information obtained from patient's sister. Patient requires psychiatric hospitalization at this time for safety, observation and stabilization. Admit inpatient. Involuntary status. I have completed first opinion. Consult for second opinion. Request healthcare surrogate and guardian advocate. Resume home medications: Haldol 10 mg at bedtime, trazodone 100 mg at bedtime and Artane 2 mg at bedtime. I will order IM backup for the Haldol in case the patient is resistant to medication treatment. Ativan as needed for anxiety and additional trazodone and Artane as needed for insomnia and EPS, respectively. Check EKG for QTc. Resume patient's home PPI. Check BMP, hemoglobin A1c and lipid panel in the morning. Vitals every shift. Counselor to see. Disposition planning. Estimated length of stay: 5-7 days. Discharge Planning Pending psychiatric stabilization Request HC Surrog/Guard Advoc?: Yes Sundeep Pollard MD Nov 09, 2017 14:11
[2017-11-09] MEDS: traZODone HCL 100 MG TAB PO SCH (20:41)
[2017-11-09] MEDS: HALOPERIDOL 10 MG TAB PO SCH (20:41)
[2017-11-09] MEDS: TRIHEXYPHENIDYL HCL 2 MG TAB PO SCH (20:41)
[2017-11-10 06:36] VITALS: BP 115/66; PULSE 64; RESP 17; TEMP 98.4; O2SAT 97
[2017-11-10] MEDS: PANTOPRAZOLE SOD 40 MG DELAYED RELEASE TAB PO SCH (09:08)
--- NOTE | 2017-11-10 16:56 | HHI.PYPN ---
Subjective Chief Complaint: Psychosis Remarks Patient was seen and case discussed with nursing. This is a request for second opinion. I read admission note and agree with the history. Patient is oppositional not cooperative with the interview. He has poor eye contact and is walking in circles. He has poor insight and denies a history of mental health. He denies agitated behavior. Denies auditory or visual hallucinations , no delusions elicited. Patient's likely responding to internal stimuli Mental Status Examination Appearance: Appropriate Consciousness: Alert Orientation: Person, Place (at least) Motor Activity: Normal gait Speech: Unremarkable Language: Adequate Fund of Knowledge: Inadequate Attention and Concentration: Easily Distracted Memory: Unremarkable Mood: Irritable Affect: Irritable, Other (dysphoric) Thought Process & Associations: Tangential Thought Content: Bizarre thinking, Delusional (likely internal stimuli) Hallucination Type: Other (appears internally stimulated) Delusion Type: Paranoid, Other (possible restorationist preoccupation) Suicidal Ideation: No (unreliable to contract for safety) Suicidal Plan: No Suicidal Intention: No Homicidal Ideation: No (unreliable to contract for safety) Homicidal Plan: No Homicidal Intention: No Insight: Poor Judgment: Poor Results Vitals/IOs Vital Signs Date Time Temp Pulse Resp B/P (MAP) Pulse Ox O2 Delivery O2 Flow Rate FiO2 11/10/17 06:36 98.4 64 17 115/66 (82) 97 11/09/17 10:00 Room Air Assessment & Plan Problem List: (1) Acute exacerbation of chronic paranoid schizophrenia ICD Codes: F20.0 - Paranoid schizophrenia Assessment & Plan I agree with the first opinion to continue petition. Criteria include acute psychosis Justification for Cont. Inpt. Patient will decompensate in a less restrictive setting Request HC Surrog/Guard Advoc?: Yes Ricardo Castillo DO Nov 10, 2017 16:56
[2017-11-10 17:53] VITALS: BP 128/100; PULSE 72; TEMP 97.2; O2SAT 97
--- NOTE | 2017-11-10 18:31 | EKG ---
Date Performed: 11/09/2017 Time Performed: 17:07:37 PTAGE: 47 years EKG: Sinus rhythm WITHIN NORMAL LIMITS BORDERLINE ECG Compared to PREVIOUS TRACING , the heart rate is slower. PREVIOUS TRACIN10/27/2010 09.40 DOCTOR: Sammy Magallanes Interpretating Date/Time 11/10/2017 18:29:43
[2017-11-10] MEDS: TRIHEXYPHENIDYL HCL 2 MG TAB PO SCH (20:12)
[2017-11-10] MEDS: traZODone HCL 100 MG TAB PO SCH (20:12)
[2017-11-10] MEDS: HALOPERIDOL 10 MG TAB PO SCH (20:12)
[2017-11-11 06:09] VITALS: BP 134/68; PULSE 72; RESP 18; TEMP 97.3; O2SAT 99
[2017-11-11] MEDS: PANTOPRAZOLE SOD 40 MG DELAYED RELEASE TAB PO SCH (09:42)
--- NOTE | 2017-11-11 11:46 | HHI.PYPN ---
Subjective Chief Complaint: Psychosis Remarks Patient was seen and case discussed with nursing. Patient remains dismissive of his mental illness and reasons for admission. Poor eye contact, pacing during the interview. No psychotic symptoms and is perseverative on discharge. Mental Status Examination Appearance: Appropriate Consciousness: Alert Orientation: Person, Place (at least) Motor Activity: Normal gait Speech: Unremarkable Language: Adequate Fund of Knowledge: Inadequate Attention and Concentration: Easily Distracted Memory: Unremarkable Mood: Irritable Affect: Irritable, Other (dysphoric) Thought Process & Associations: Tangential Thought Content: Bizarre thinking (responding to internal stimuli), Delusional (likely internal stimuli) Hallucination Type: Other (appears internally stimulated) Delusion Type: Paranoid, Other (possible synagogue preoccupation) Suicidal Ideation: No (unreliable to contract for safety) Suicidal Plan: No Suicidal Intention: No Homicidal Ideation: No (unreliable to contract for safety) Homicidal Plan: No Homicidal Intention: No Insight: Poor Judgment: Poor Results Vitals/IOs Vital Signs Date Time Temp Pulse Resp B/P (MAP) Pulse Ox O2 Delivery O2 Flow Rate FiO2 11/11/17 06:09 97.3 72 18 134/68 (90) 99 11/09/17 10:00 Room Air Assessment & Plan Problem List: (1) Acute exacerbation of chronic paranoid schizophrenia ICD Codes: F20.0 - Paranoid schizophrenia Assessment & Plan Continue current treatment plan Justification for Cont. Inpt. Patient will decompensate in a less restrictive setting Request HC Surrog/Guard Advoc?: Yes Ricardo Castillo DO Nov 11, 2017 11:46
[2017-11-11] MEDS: TRIHEXYPHENIDYL HCL 2 MG TAB PO SCH ×2 (12:57→20:33)
[2017-11-11 17:10] VITALS: BP 151/87; PULSE 76; RESP 18; TEMP 97; O2SAT 100
[2017-11-11] MEDS: HALOPERIDOL 10 MG TAB PO SCH (20:33)
[2017-11-11] MEDS: traZODone HCL 100 MG TAB PO SCH (20:33)
[2017-11-12 06:22] VITALS: BP 126/59; PULSE 61; RESP 18; TEMP 97; O2SAT 97
[2017-11-12] MEDS: PANTOPRAZOLE SOD 40 MG DELAYED RELEASE TAB PO SCH (08:52)
--- NOTE | 2017-11-12 11:03 | HHI.PYPN ---
Subjective Chief Complaint: Psychosis Mental Status Examination Appearance: Appropriate Consciousness: Alert Orientation: Person, Place (at least) Motor Activity: Normal gait Speech: Unremarkable Language: Adequate Fund of Knowledge: Inadequate Attention and Concentration: Easily Distracted Memory: Unremarkable Mood: Irritable Affect: Irritable, Other (dysphoric) Thought Process & Associations: Tangential Thought Content: Bizarre thinking (responding to internal stimuli), Delusional (likely internal stimuli) Hallucination Type: Other (appears internally stimulated) Delusion Type: Paranoid, Other (possible anabaptism preoccupation) Suicidal Ideation: No (unreliable to contract for safety) Suicidal Plan: No Suicidal Intention: No Homicidal Ideation: No (unreliable to contract for safety) Homicidal Plan: No Homicidal Intention: No Insight: Poor Judgment: Poor Results Vitals/IOs Vital Signs Date Time Temp Pulse Resp B/P (MAP) Pulse Ox O2 Delivery O2 Flow Rate FiO2 11/12/17 06:22 97.0 61 18 126/59 (81) 97 11/09/17 10:00 Room Air Assessment & Plan Problem List: (1) Acute exacerbation of chronic paranoid schizophrenia ICD Codes: F20.0 - Paranoid schizophrenia Assessment & Plan Estimated LOS: days Request HC Surrog/Guard Advoc?: Yes Sundeep Pollard MD Nov 12, 2017 11:03
[2017-11-12 12:09] LABS: BICARBONATE 30.1 MEQ/L (21.0-32.0); BLOOD UREA NITROGEN 15 MG/DL (7-18); CALCIUM 8.8 MG/DL (8.5-10.1); CHLORIDE 99 MEQ/L (98-107); CREATININE 0.92 MG/DL (0.60-1.30); GLOMERULAR FILTRATION RATE 108 ML/MIN (>89); GLUCOSE,RANDOM 117 MG/DL (74-106); SODIUM (NA) 136 MEQ/L (136-145)
[2017-11-12 12:10] LABS: CHOLESTEROL 67 MG/DL (120-200); TRIGLYCERIDES 50 MG/DL (42-150)
[2017-11-12 12:13] LABS: CHOLESTEROL/ HDL RATIO 1.75 RATIO; HDL CHOLESTEROL 38.1 MG/DL (40.0-60.0); LDL CHOLESTEROL 19 MG/DL (0-99)
[2017-11-12] MEDS ORDERED: HALO10TA PO (13:29)
[2017-11-12] MEDS ORDERED: TRIH2 PO (13:29)
[2017-11-12] MEDS ORDERED: TRAZ50TA12 PO (13:29)
--- NOTE | 2017-11-12 13:29 | HHI.DS ---
Psychiatry Discharge Summary Inpatient Psychiatric care?: Yes Advance Directive: No Reason Not Provided: education provided Mental Health AdvanceDirective: No Health Care Proxy: No Admission Admission Date Nov 09, 2017 at 13:13 Admission Diagnosis: (1) Acute exacerbation of chronic paranoid schizophrenia ICD Code: F20.0 - Paranoid schizophrenia Brief History Mr. Araujo is a 47-year-old male with a history of schizophrenia who presents under an ex parte order initiated by his outpatient case work aide Renu Velez. Ex parte order reviewed. It alleges that the patient has made threatening comments to staff and has been yelling at peers. It also notes that he was trying to pull wires from an electrical box. It further alleges that the patient is not taking his medications as prescribed. Reviewing the electronic medical record, I note that the patient was admitted here most recently under Dr. Walls in 2013. Patient seen and examined. Chart reviewed. Case discussed with nurse practitioner who evaluated the patient earlier today. On my examination today, the patient presents as guarded and irritable. He insists "I had all this under control." He denies audiovisual hallucinations but appears internally stimulated. Regarding the allegations in the ex parte says "it's all a fabrication and lies." He denies any SI or HI but seems unreliable to contract for safety. In addition to paranoia and he seems to exhibit latter day preoccupation. No depressive or hypomanic/manic symptoms elicited. Remainder of psychiatric ROS is negative. No acute physical complaints. Past psychiatric history: Patient reports a history of schizophrenia. He follows at [facility]. His most recent psychiatric admission was reportedly here at [place]. He endorses a history of suicide attempts in the past but is evasive regarding the time and mechanism of these suicide attempts. Family history: Patient endorses a family history of mental illness in his father's side of the family noting "they talk to themselves." Chemical dependency history: The patient denies any abuse of drugs or alcohol. Social history: The patient is homeless but apparently has been residing in some sort of transitional housing. He has his GED. He collects SSI. He is single with no children. Denies any history. He reports that he has some sort of legal issue and has a court date but says "I don't want to talk about it." He denies any access to guns or firearms. He believes in God. He denies any history of abuse or neglect. I endeavored to obtain collateral information from case work aide Renu Velez at the number listed in the ex parte, but it seems this is a fax number. I was able to reach patient's sister Karen Araujo at the number listed in the EMR. She notes that she saw the patient yesterday and he was visibly responding to internal stimuli. She also notes that the patient called her from the emergency department verbalizing paranoid ideation. She believes that he is struggling with his mental illness presently. She is willing to act as the patient's healthcare surrogate and is in agreement with the plan as outlined below. I called over to [facility] to get patient's med list. Patient takes Haldol 10mg qHS, trazodone 100mg qHS, Artane 2mg qHS. These were last written 10/24/17. Tobacco Use In Past 30 Days: No Tobacco Past 30 Days Alcohol Use: Never Hospital Course Patient was admitted to a locked, inpatient psychiatric unit. Appropriate precautions were in place throughout patient's hospital stay. Patient was seen and examined on the unit by psychiatry and also visited by counselor. Home psychotropic medication was resumed, and patient tolerated this well with only some possible EPS over the weekend; I have titrated his Artane on discharge to manage this side effect. Patient had improvement in his presenting psychiatric symptomatology during the course of his hospital stay. There was no evidence of any suicidality or homicidality on the inpatient unit. There was no evidence of self care deficit. Patient remained in good behavioral control and was compliant with medications. On the day of discharge: Patient seen and examined with nurse. Chart reviewed. Case discussed with nursing staff. No behavioral issues noted overnight. On my examination today, the patient is requesting discharge from the inpatient psychiatric unit today. He denies any suicidal or homicidal ideation, intent or plan on direct questioning and contracts for safety. Mood is stable; I can elicit no depressive or hypomanic/ manic symptoms in this patient at this time. He denies any audiovisual hallucinations. I can elicit no delusional material. There is no evidence of any impairment in reality construction. Patient denies side effects from medications currently. I have offered the patient long-acting injectable Haldol Decanoate, but he has declined and is capacitated to do so presently. He has no acute physical complaints. I did endeavor on two separate occasions to reach sister Karen on the day of discharge to discuss the case. Suicide and violence risk assessment on day of discharge both suggest lower imminent risk, and the patient's level of function is adequate for outpatient care. The patient does not meet criteria for ongoing involuntary psychiatric hospitalization. He is requesting discharge from the inpatient psychiatric unit today, and I have no basis to retain him over his objection at this point. He will be discharged today with psychiatric follow-up as arranged by counselor. Patient is also to follow-up with primary care. I have counseled the patient to abstain from substances of abuse. I have counseled the patient regarding warning signs for need to return to the psychiatric emergency room as part of a general safety plan. Results Blood Pressure 126 / 59 Vital Signs Date Time Temp Pulse Resp B/P (MAP) Pulse Ox O2 Delivery O2 Flow Rate FiO2 11/12/17 06:22 97.0 61 18 126/59 (81) 97 11/09/17 10:00 Room Air Laboratory Tests Test 11/12/17 11:01 Random Glucose 117 MG/DL (74-106) Cholesterol Level 67 MG/DL (120-200) HDL Cholesterol 38.1 MG/DL (40.0-60.0) Laboratory Results Test 11/12/17 11:01 Cholesterol Level 67 MG/DL (120-200) HDL Cholesterol 38.1 MG/DL (40.0-60.0) LDL Cholesterol 19 MG/DL (0-99) Triglycerides Level 50 MG/DL (42-150) Summary of Procedures None done Imaging None done Pending results at discharge: No Medications # of Antipsychotic meds at D/C: 1 Approp Antipsych med options 1 - Minimum of three failed multiple trials of monotherapy. 2 - Documented plan to taper to monotherapy due to previous use of multiple meds OR cross-taper in progress at D/C. 3 - Documentation of augmentation of Clozapine. 4 - Justification other than those listed in allowable values 1-3, document here : Discharge Discharge Date: Nov 12, 2017 Discharge Diagnosis: (1) Acute exacerbation of chronic paranoid schizophrenia Diagnosis: Principal (stabilized) ICD Code: F20.0 - Paranoid schizophrenia Pt Condition on Discharge: Stable Discharge Disposition: Discharge Home Discharge Instructions Diet Instructions: As Tolerated, No Restrictions Activities you can perform: Weight Bearing as Akanksha Scheduled Appointment: as per counselor's notes New Medications: Haloperidol (Haloperidol) 10 Mg Tab 10 MG PO HS for Mental Health for 15 Days, TAB 1 Refill Trazodone (Trazodone) 50 Mg Tab 100 MG PO HS for Mental Health for 15 Days, TAB 1 Refill Trihexyphenidyl (Trihexyphenidyl) 2 Mg Tab 2 MG PO BID for Mental Health for 15 Days, #30 TAB 1 Refill Continued Medications: Omeprazole (Omeprazole) 40 Mg Cap 40 MG PO DAILY, #30 CAP 0 Refills Discharge Time <= 30 minutes Mental Status Examination Appearance: Appropriate Consciousness: Alert Orientation: x4 Motor Activity: Normal gait, Other (no hand tremor, no cogwheeling, no hypomimia, no evident tongue or pharyngeal involvement, no dystonia, no dyskinesia, no other motor abnormalities noted.) Speech: Unremarkable Language: Adequate Fund of Knowledge: Adequate Attention and Concentration: Adequate Memory: Unremarkable Mood: Appropriate Affect: Appropriate Thought Process & Associations: Intact, Logical, Linear Thought Content: Appropriate Hallucination Type: None Delusion Type: None Suicidal Ideation: No Suicidal Plan: No Suicidal Intention: No Homicidal Ideation: No Homicidal Plan: No Homicidal Intention: No Mental Status Exam Remarks Insight and judgment are fair to poor, likely chronic condition Discharge/Advance Care Plan Health Problems: (1) Acute exacerbation of chronic paranoid schizophrenia Goals to promote your health * To prevent worsening of your condition and complications * To maintain your health at the optimal level Directions to meet your goals Take your medications as prescribed Follow your dietary instruction Follow activity as directed Keep your appointments as scheduled Take your immunizations and boosters as scheduled If your symptoms worsen call your PCP, if no PCP go to Urgent Care Center or Emergency Room For 24/ questions related to your inpatient stay or results of tests pending at discharge, please contact Dr. Sundeep Pollard at Smoking is Dangerous to Your Health. Avoid second hand smoking Sundeep Pollard MD Nov 12, 2017 13:29
[2017-11-12 13:43] LABS: HEMOGLOBIN A1C 6.7 % (4.3-6.0)
== END 2017-11-12 16:29 | disposition home or self-care (01) | DRG 885 ==
LOC: NEPJ 22:03 → NEDA 11-09 13:13 → H270 11-09 15:00
PROVIDERS: ADMIT Psychiatry & Neurology Psychiatry; ATTEND Psychiatry & Neurology Psychiatry
DX: F20.0 Paranoid schizophrenia (principal); Z81.8 Family history of other mental and behavioral disorders
CPT/HCPCS: 80048; 80053; 80061; 80307; 83036; 84443; 85025; 93005; 99285

== ENCOUNTER 2017-12-12 17:20 | Inpatient (IN) | payer MEDICAID, OTHER ==
[~2017-12-12] VITALS: Ht 167.6 cm; Wt 107.8 kg
[~2017-12-12 17:20] MED LIST changes: -BENZ100 PO; +HALO10TA PO; -IBUP-232 PO; +OMEP40CA2 PO; -ROBA750T PO; +TRAZ50TA12 PO; +TRIH2 PO
[2017-12-12 17:43] VITALS: BP 142/82; PULSE 94; RESP 18; TEMP 98; O2SAT 98
--- NOTE | 2017-12-12 19:50 | PD ---
HPI Chief Complaint: Psychiatric Symptoms Time Seen by Provider: 18:55 Travel History International Travel<30 days: No Contact w/Intl Traveler<30days: No Traveled to known affect area: No History of Present Illness HPI Patient is a 47-year-old male presenting to the emergency department under an ex parte today for psychiatric evaluation. Patient is not forthcoming with any information. He reports that he does not like taking medications and will not take any medications. He denies any suicidal homicidal ideations. He states he just wants to get out of here. History and physical is limited due to patient's lack of information. He denies any physical complaints at this time. He denies any hallucinations or drug use. PFSH Past Medical History Cancer: No Cardiovascular Problems: Yes Diabetes: No Diminished Hearing: No Endocrine: No Gastrointestinal Disorders: Yes (HX GI BLEED; ANAL FISSURE) Genitourinary: No Hypertension: Yes Immune Disorder: No Musculoskeletal: No Neurologic: No Psychiatric: Yes (SCHIZOPHRENIA) Reproductive: No Respiratory: No Immunizations Current: Yes Schizophrenia: Yes ?: Not Social History Alcohol Use: No Tobacco Use: No Substance Use: No Allergies-Medications (Allergen,Severity, Reaction): Coded Allergies: No Known Allergies (Verified Allergy, Unknown, 11/09/17) Per [facility] [phone]. Reported Meds & Prescriptions Reported Meds & Active Scripts Active Trihexyphenidyl (Trihexyphenidyl HCl) 2 Mg Tab 2 Mg PO BID 15 Days Haloperidol 10 Mg Tab 10 Mg PO HS 15 Days Trazodone (Trazodone HCl) 50 Mg Tab 100 Mg PO HS 15 Days Reported Omeprazole 40 Mg Cap 40 Mg PO DAILY Review of Systems Except as stated in HPI: all other systems reviewed are Neg Physical Exam Narrative GENERAL: Overweight, well-developed, alert -Slov[place] male. Presenting in no acute distress. SKIN: Warm and dry. HEAD: Atraumatic. Normocephalic. EYES: Pupils equal and round. No scleral icterus. Mild injection bilaterally, no drainage. ENT: No nasal bleeding or discharge. Mucous membranes pink and moist. NECK: Trachea midline. No JVD. CARDIOVASCULAR: Regular rate and rhythm. RESPIRATORY: No accessory muscle use. Clear to auscultation. Breath sounds equal bilaterally. GASTROINTESTINAL: Abdomen soft, non-tender, nondistended. Hepatic and splenic margins not palpable. MUSCULOSKELETAL: Extremities without clubbing, cyanosis, or edema. No obvious deformities. NEUROLOGICAL: Awake and alert. No obvious cranial nerve deficits. Motor grossly within normal limits. Five out of 5 muscle strength in the arms and legs. Normal speech. PSYCHIATRIC: Appropriate mood and affect; insight and judgment normal. Data Data Last Documented VS Vital Signs Date Time Temp Pulse Resp B/P (MAP) Pulse Ox O2 Delivery O2 Flow Rate FiO2 12/12/17 17:43 98.0 94 18 142/82 (102) 98 Room Air Orders Orders Complete Blood Count With Diff (12/12/17 18:45) Comprehensive Metabolic Panel (12/12/17 18:45) Thyroid Stimulating Hormone (12/12/17 18:45) Psych Screen (12/12/17 18:45) Drug Screen, Random Urine (12/12/17 18:45) Alcohol (Ethanol) (12/12/17 18:45) Salicylates (Aspirin) (12/12/17 18:45) Tylenol (Acetaminophen) (12/12/17 18:45) MDM Medical Decision Making Medical Screen Exam Complete: Yes Emergency Medical Condition: Yes Interpretation(s) Vital Signs Date Time Temp Pulse Resp B/P (MAP) Pulse Ox O2 Delivery O2 Flow Rate FiO2 12/12/17 17:43 98.0 94 18 142/82 (102) 98 Room Air Differential Diagnosis Mood disorder versus substance abuse versus schizophrenia versus metabolic abnormality versus other Narrative Course Patient is a 47-year-old male presenting to emergency department for psychiatric evaluation under an ex parte today. Patient's vital signs are stable, he is alert and cooperative. Mental health screening discussed with the patient. Psychiatric screen ordered. Patient refused to have any labs drawn or provide a urine sample. Labs were reviewed from prior admission in October. Patient is medically cleared for psychiatric evaluation at this time. Diagnosis Primary Impression: Medical clearance for psychiatric admission Condition: Stable Delfina Guerrier Dec 12, 2017 19:50
[2017-12-12 22:05] VITALS: BP 138/79; PULSE 73; RESP 20; TEMP 98.9; O2SAT 100
[2017-12-13 06:06] VITALS: BP 128/77; PULSE 71; RESP 14; TEMP 98.2; O2SAT 100
--- NOTE | 2017-12-13 10:54 | PD ---
History of Present Illness Chief Complaint: Psychiatric Symptoms Time Seen by Provider: 10:20 Travel History International Travel<30 Days: No Contact w/Intl Traveler<30days: No Known affected area: No Legal Status Legal Status: Ex Parte History of Present Illness: History of Present Illness HPI Patient is a 47-year-old, -Filipino with history of schizophrenia male presenting to the emergency department under an ex parte initiated by his [employer] [place] manager case Ms. Renu Velze. The [place] act alleges that the patient has been non-medication compliant, has demonstrated increased aggressive and agitated behavior, has been rearranging security cameras in his residence, covered all the events in his apartment, was observed throwing objects over a fence, was seen with a gas can in his hand and made a bomb gestures, and failed to show up for his psychiatric appointment on December 05. There is also documentation that he called the police on the manager case and the director supply chain when he staff approached him regarding his threatening behavior towards peers. EMR is reviewed. The patient was last admitted to our inpatient psychiatric unit on November 09, 2017 also under an expert take filed by his manager case Renu Velez. At that time it was alleged that he was aggressive as well. Toxicology report is pending. Labs are pending as well. Patient is seen in J pod. He is awake and alert. He is guarded and irritable. He states that he does not need to be here and that he is not going to take any medication. Disorganized thought pattern. At times he talks about his grandma not being here to rock him to sleep, he also talks about wanting to see the gis administrator or call people at his [employer]. He denies any hallucinations although he does appear internally stimulated. Reports that he is sleeping well and eating well. PFSH Past Medical History Cancer: No Cardiovascular Problems: Yes Diabetes: No Diminished Hearing: No Endocrine: No Gastrointestinal Disorders: Yes (HX GI BLEED; ANAL FISSURE) Genitourinary: No Hypertension: Yes Immune Disorder: No Musculoskeletal: No Neurologic: No Psychiatric: Yes (SCHIZOPHRENIA) Reproductive: No Respiratory: No Immunizations Current: Yes Schizophrenia: Yes ?: Not Psychiatric History Psychiatric History Hx Psychiatric Treatment: Patient has a long mental health facility with both [facility] with medication and behavior treatment for Schizophrenia. History of Inpatient Treatment: Yes (Last inpatient hospitalization October 2017) Guns or firearms in home: No Social History Single, lives in supported housing program. Patient is on disability. Hx Alcohol Use: No Hx Tobacco Use: No Hx Substance Use: No Substance Use Type: Crack, Cocaine Hx of Substance Use Treatment: Yes Family Psychiatric History None provided Allergies-Medications (Allergen,Severity, Reaction): Coded Allergies: No Known Allergies (Verified Allergy, Unknown, 11/09/17) Per [facility] [phone]. Reported Meds & Prescriptions Reported Meds & Active Scripts Active Trihexyphenidyl (Trihexyphenidyl HCl) 2 Mg Tab 2 Mg PO BID 15 Days Haloperidol 10 Mg Tab 10 Mg PO HS 15 Days Trazodone (Trazodone HCl) 50 Mg Tab 100 Mg PO HS 15 Days Reported Omeprazole 40 Mg Cap 40 Mg PO DAILY Review of Systems ROS Limitations: Uncooperative Mental Status Examination Appearance: Appropriate (Dressed in hospital gown and maintaining basic hygiene ) Consciousness: Alert Orientation: x4 Motor Activity: Normal gait Speech: Rapid Language: Adequate Fund of Knowledge: Adequate Attention and Concentration: Easily Distracted Memory: Unremarkable Mood: Angry, Irritable Affect: Appropriate Thought Process & Associations: Loose associations Thought Content: Other (Suspicious) Hallucination Type: None Delusion Type: Paranoid Suicidal Ideation: No Suicidal Plan: No Suicidal Intention: No Homicidal Ideation: No Homicidal Plan: No Homicidal Intention: No Insight: Poor Judgment: Impulsive MDM Medical Decision Making Medical Record Reviewed: Yes Assessment/Plan Patient is a 47-year-old, -Filipino with history of schizophrenia male presenting to the emergency department under an ex parte initiated by his [facility] manager case Ms. Renu Velez. The [place] act alleges that the patient has been non-medication compliant, has demonstrated increased aggressive and agitated behavior, has been rearranging security cameras in his residence, covered all the events in his apartment, was observed throwing objects over a fence, was seen with a gas can in his hand and made a bomb gestures, and failed to show up for his psychiatric appointment on December 05. There is also documentation that he called the police on the manager case and the director supply chain when he staff approached him regarding his threatening behavior towards peers. Patient has been only minimally cooperative here in the ED. He appears guarded, irritable. Patient currently meets criteria for inpatient psychiatric treatment as it is alleged that he has continued with increase in his aggressive behavior as well as refusing prescribed psychiatric medication. He will be admitted to inpatient psychiatry for further evaluation, stabilization and for safety. Orders Orders Complete Blood Count With Diff (12/12/17 18:45) Comprehensive Metabolic Panel (12/12/17 18:45) Thyroid Stimulating Hormone (12/12/17 18:45) Psych Screen (12/12/17 18:45) Drug Screen, Random Urine (12/12/17 18:45) Alcohol (Ethanol) (12/12/17 18:45) Salicylates (Aspirin) (12/12/17 18:45) Tylenol (Acetaminophen) (12/12/17 18:45) Diet Regular Basic (12/13/17 Breakfast) Diet Regular Basic (12/13/17 Lunch) Results Vital Signs Date Time Temp Pulse Resp B/P (MAP) Pulse Ox O2 Delivery O2 Flow Rate FiO2 12/13/17 06:06 98.2 71 14 128/77 (94) 100 12/12/17 22:05 98.9 73 20 138/79 (98) 100 Room Air 12/12/17 17:43 98.0 94 18 142/82 (102) 98 Room Air Diagnosis Primary Impression: Medical clearance for psychiatric admission Additional Impression: schizophrenia Admitting Information Admitting Physician Requests: Admit Condition: Stable Problem Qualifiers Estrella Gomez Dec 13, 2017 10:54
[2017-12-13] MEDS ORDERED: MAGNESIUM HYDROXIDE SUSP 30 ML CUP PO PRN (11:15)
[2017-12-13 11:29] LABS: AUTOMATED NEUTROPHIL # 4.3 TH/MM3 (1.8-7.7); BASOPHIL # 0.1 TH/MM3 (0-0.2); BASOPHIL % 0.8 % (0.0-2.0); EOSINOPHIL # 0.2 TH/MM3 (0-0.4); EOSINOPHIL % 3.3 % (0.0-4.0); HEMATOCRIT 46.2 % (39.0-51.0); HEMOGLOBIN 15.4 GM/DL (13.0-17.0); LYMPH % 29.8 % (9.0-44.0); LYMPHOCYTE # 2.2 TH/MM3 (1.0-4.8); MEAN CELL VOLUME 91.1 FL (80.0-100.0); MEAN CORPUSCULAR HEMOGLOBIN 30.4 PG (27.0-34.0); MEAN CORPUSCULAR HGB CONC 33.3 % (32.0-36.0); MEAN PLATELET VOLUME 8.2 FL (7.0-11.0); MONO % 7.3 % (0.0-8.0); MONOCYTE # 0.5 TH/MM3 (0-0.9); NEUT % 58.8 % (16.0-70.0); PLATELET COUNT 280 TH/MM3 (150-450); RED BLOOD COUNT 5.08 MIL/MM3 (4.50-5.90); RED CELL DISTRIBUTION WIDTH 13.9 % (11.6-17.2); WHITE BLOOD COUNT 7.3 TH/MM3 (4.0-11.0)
[2017-12-13 11:47] LABS: ALBUMIN 3.4 GM/DL (3.4-5.0); ALT (GPT) 45 U/L (12-78); AST (GOT) 20 U/L (15-37); BICARBONATE 29.5 MEQ/L (21.0-32.0); BLOOD UREA NITROGEN 14 MG/DL (7-18); CALCIUM 8.4 MG/DL (8.5-10.1); CHLORIDE 107 MEQ/L (98-107); CREATININE 1.49 MG/DL (0.60-1.30); GLOMERULAR FILTRATION RATE 62 ML/MIN (>89); GLUCOSE,RANDOM 81 MG/DL (74-106); SODIUM (NA) 140 MEQ/L (136-145)
[2017-12-13 11:58] LABS: ACETAMINOPHEN LESS THAN 2.0 MCG/ML (10.0-30.0); ALKALINE PHOSPHATASE 70 U/L (45-117); TOTAL BILIRUBIN ADULT 0.6 MG/DL (0.2-1.0); TOTAL PROTEIN 6.9 GM/DL (6.4-8.2)
[2017-12-13 12:05] VITALS: BP 124/72; PULSE 68; RESP 18; TEMP 97.6; O2SAT 98
[2017-12-13 16:30] VITALS: BP 137/76; PULSE 77; RESP 16; TEMP 98.1; O2SAT 98
[2017-12-13] MEDS: ACETAMINOPHEN 325 MG TAB PO PRN (21:49)
[2017-12-14] MEDS: ALUMINUM/MAGNESIUM/SIMETH 30 ML CUP PO PRN ×2 (03:34→18:13)
[2017-12-14 06:01] VITALS: BP 117/80; PULSE 63; RESP 16; TEMP 99.6; O2SAT 98
--- NOTE | 2017-12-14 08:08 | HHI.HP ---
Provisional Diagnosis Admission Date Dec 13, 2017 at 11:11 Uneeda I. 1. Schizophrenia, paranoid type, acute exacerbation Uneeda II. Deferred Certification of Person's Competence To Provide Express and Informed Consent I have personally examined Hussain Araujo , a person being served at [facility] on, Dec 14, 2017 08:08. Express and informed consent means consent voluntarily given in writing, by a competent person, after sufficient explanation and disclosure of the subject matter involved to enable the person to make a knowing and willful decision without any element of force, fraud, deceit, duress, or other form of constraint or coercion. This person is 18 years of age or older, is not now known to be incompetent to consent to treatment with a guardian advocate, and does not have a health care surrogate or proxy currently making medical treatment decisions. I have found this person to be one of the following: [] Competent to provide express and informed consent, as defined above, for voluntary admission to this facility and is competent to provide express and informed consent for treatment. He/she has the consistent capacity to make well reasoned, willful, and knowing decisions concerning his or her medical or mental health treatment. The person fully and consistently understands the purpose of the admission for examination/placement and is fully capable of personally exercising all rights [place] [x] Incompetent to provide express and informed consent to voluntary admission, and this is incompetent to provide express and informed consent to treatment. The person must be transferred to involuntary status and a petition for a guardian advocate filed with the Circuit Court. [] Refusing to provide express and informed consent to voluntary admission but is competent to provide express and informed consent for treatment. The person must be discharged or transferred to involuntary status. Form shall be completed within 24 hours of a person's arrival at the receiving facility and filed in the clinical record of each person: 1. Admitted on a voluntary basis 2. Permitted to provide express and informed consent to his/her own treatment 3. Allowed to transfer from involuntary to voluntary status 4. Prior to permitting a person to consent to his or her own treatment after having been previously found incompetent to consent to treatment. History of Present Illness Capacity: Lacks Capacity Psych Chief Complaint: Psychosis HPI Mr. Araujo is a 47-year-old male with a history of schizophrenia who presents under an ex parte order initiated by his outpatient clinical case manager alleging that the patient has been noncompliant with psychotropic medications and has been threatening tenants at his residence. Reviewing the electronic medical record, I note that the patient was hospitalized under my care in October of this year. Patient seen and examined with nurse. Chart reviewed. Case discussed with nursing staff. On my examination today, patient presents as irritable. He is paranoid and internally stimulated. He insists "I'm not an ACT patient no more. I'm not on no psych meds, all I'm on is my health meds." Affect is dysphoric and irritable. He refuses to sit for the interview and can be seen pacing the unit following our interview. This provider also overhears patient muttering into project manager/team coach on unit phone about "the whole building come down." Unclear if he is actually speaking to anyone. He denies SI/HI but seems decidedly unreliable to contract for safety. Decides dysphoria, I can elicit no depressive or hypomanic/manic symptoms. Besides the paranoia, no other delusional material elicited. Psychiatric interview is limited as patient is unable to tolerate extended interview. He finally says "I don't want to answer these questions" and shuts down. He verbalizes no acute physical complaints. I am unable to obtain any meaningful past psychiatric, family, chemical dependency or social history from the patient at this point because of his degree of psychiatric symptomatology. I did endeavor to reach his sister Karen Araujo at the number listed in EMR and left a generic voicemail requesting a call back. I was able to reach patient's sister Jacey Araujo at number listed in EMR. She is willing to act as HCS and is in agreement with the treatment plan as outlined below. She reports that the patient has been increasingly paranoid in the last 2-3 weeks, and she suspects patient has been medication non-adherent. She notes that within the last few days patient was over at her house doing some yard work when he began threatening Jacey and her sister. She notes that his threats were "really scary." We discuss possible initiation of BANGURA antipsychotic to reduce the risk of medication nonadherence, and Jacey seems supportive of this. Review of Systems ROS Limitations: Psychotic, Poor Historian Except as stated in HPI: all other systems reviewed are Neg Past Family Social History Coded Allergies: No Known Allergies (Verified Allergy, Unknown, 11/09/17) Per [facility] [phone]. Past Medical History Includes a history of GERD on PPI. Active Scripts Trihexyphenidyl (Trihexyphenidyl) 2 Mg Tab, 2 MG PO BID for Mental Health for 15 Days, #30 TAB 1 Refill Prov:Sundeep Pollard MD 11/12/17 Haloperidol (Haloperidol) 10 Mg Tab, 10 MG PO HS for Mental Health for 15 Days, TAB 1 Refill Prov:Sundeep Pollard MD 11/12/17 Trazodone (Trazodone) 50 Mg Tab, 100 MG PO HS for Mental Health for 15 Days, TAB 1 Refill Prov:Sundeep Pollard MD 11/12/17 Reported Medications Omeprazole (Omeprazole) 40 Mg Cap, 40 MG PO DAILY, #30 CAP 0 Refills 11/09/17 Current Medications Medications (Trade) Dose Ordered Sig/Chay Route Start Time Stop Time Status Last Admin (Tylenol) 650 mg Q4H PRN PO 12/13/17 11:15 12/13/17 21:49 (Milk Of Magnesia Liq) 30 ml DAILY PRN PO 12/13/17 11:15 (Mag-Al Plus Susp Liq) 30 ml Q6H PRN PO 12/13/17 11:15 12/14/17 03:34 (Protonix) 40 mg DAILY PO 12/14/17 09:00 Patient's Strengths (min. 2) In a monitored setting. Verbally fluent. Physical Exam Physical exam completed by ED provider. On my examination today, the patient appears to be in no acute physical distress. No motor abnormalities noted. Labs and vitals reviewed: Vital Signs Vital Signs Date Time Temp Pulse Resp B/P (MAP) Pulse Ox O2 Delivery O2 Flow Rate FiO2 12/14/17 06:01 99.6 63 16 117/80 (92) 98 12/12/17 22:05 Room Air Lab Results Test 12/13/17 11:00 White Blood Count 7.3 TH/MM3 Red Blood Count 5.08 MIL/MM3 Hemoglobin 15.4 GM/DL Hematocrit 46.2 % Mean Corpuscular Volume 91.1 FL Mean Corpuscular Hemoglobin 30.4 PG Mean Corpuscular Hemoglobin Concent 33.3 % Red Cell Distribution Width 13.9 % Platelet Count 280 TH/MM3 Mean Platelet Volume 8.2 FL Neutrophils (%) (Auto) 58.8 % Lymphocytes (%) (Auto) 29.8 % Monocytes (%) (Auto) 7.3 % Eosinophils (%) (Auto) 3.3 % Basophils (%) (Auto) 0.8 % Neutrophils # (Auto) 4.3 TH/MM3 Lymphocytes # (Auto) 2.2 TH/MM3 Monocytes # (Auto) 0.5 TH/MM3 Eosinophils # (Auto) 0.2 TH/MM3 Basophils # (Auto) 0.1 TH/MM3 CBC Comment DIFF FINAL Differential Comment Blood Urea Nitrogen 14 MG/DL Creatinine 1.49 MG/DL Random Glucose 81 MG/DL Total Protein 6.9 GM/DL Albumin 3.4 GM/DL Calcium Level 8.4 MG/DL Alkaline Phosphatase 70 U/L Aspartate Amino Transf (AST/SGOT) 20 U/L Alanine Aminotransferase (ALT/SGPT) 45 U/L Total Bilirubin 0.6 MG/DL Sodium Level 140 MEQ/L Potassium Level 4.8 MEQ/L Chloride Level 107 MEQ/L Carbon Dioxide Level 29.5 MEQ/L Anion Gap 4 MEQ/L Estimat Glomerular Filtration Rate 62 ML/MIN Thyroid Stimulating Hormone 3rd Gen 0.416 uIU/ML Salicylates Level LESS THAN 1.7 MG/DL Urine Opiates Screen NEG Acetaminophen Level LESS THAN 2.0 MCG/ML Urine Barbiturates Screen NEG Urine Amphetamines Screen NEG Urine Benzodiazepines Screen NEG Urine Cocaine Screen NEG Urine Cannabinoids Screen NEG Ethyl Alcohol Level LESS THAN 3 MG/DL Mildly decreased GFR noted. BMP, hemoglobin A1c and lipid panel ordered for this morning are listed as in process. Mental Status Examination Appearance: Other (Fair grooming and hygiene. In hospital attire.) Consciousness: Alert, Vigilant Orientation: Person, Place (At least) Motor Activity: Normal gait Speech: Unremarkable Language: Adequate Fund of Knowledge: Adequate Attention and Concentration: Easily Distracted Memory: Unremarkable Mood: Angry, Irritable, Other (Dysphoric) Affect: Other (Restricted, consistent with mood) Thought Process & Associations: Intact Thought Content: Hallucinations, Delusional Hallucination Type: Other (Appears internally preoccupied) Delusion Type: Paranoid Suicidal Ideation: No (Unreliable to contract for safety) Suicidal Plan: No Suicidal Intention: No Homicidal Ideation: No (Unreliable to contract for safety) Homicidal Plan: No Homicidal Intention: No Insight: Poor Judgment: Poor Assessment & Plan Problem List: (1) Acute exacerbation of chronic paranoid schizophrenia ICD Codes: F20.0 - Paranoid schizophrenia Assessment & Plan 47-year-old male with psychiatric history as detailed above who presents under ex parte order. Patient presents as severely decompensated with respect to his psychotic illness, and the patient reports medication nonadherence. Collateral from patient's sister suggests that the patient has been increasingly threatening. I will plan to admit the patient to the inpatient psychiatric unit for safety, observation and stabilization. Admit inpatient. Involuntary status. I have completed first opinion. Consult for second opinion. Request healthcare surrogate and guardian advocate. For psychosis I will start Haldol 5 mg twice daily with plans to titrate to effect. I will also provide IM Haldol should the patient refuse oral Haldol or if he should experience severe agitation. Continue trazodone 100 mg at bedtime and scheduled Artane. Ativan as needed for anxiety and Benadryl IM as needed for EPS not corrected by the Artane. Continue Protonix. Continue to observe on the high acuity unit. Follow-up BMP, hemoglobin A1c and lipid panel. Vitals every shift. Counselor to see. Disposition planning. Estimated length of stay : 7-9 days. Discharge Planning Pending psychiatric stabilization Request HC Surrog/Guard Advoc?: Yes Sundeep Pollard MD Dec 14, 2017 08:08
[2017-12-14] MEDS: PANTOPRAZOLE SOD 40 MG DELAYED RELEASE TAB PO SCH (08:43)
[2017-12-14] MEDS: HALOPERIDOL 5 MG TAB PO SCH ×2 (09:00→22:00)
[2017-12-14] MEDS: TRIHEXYPHENIDYL HCL 2 MG TAB PO SCH ×2 (09:00→21:00)
[2017-12-14] MEDS ORDERED: LORazepam 2 MG/ML VIAL IM PRN (09:00)
[2017-12-14] MEDS ORDERED: diphenhydrAMINE HCL 50 MG/ML VIAL IM PRN (09:00)
[2017-12-14] MEDS ORDERED: LORazepam 1 MG TAB PO PRN (09:00)
[2017-12-14 09:51] LABS: BICARBONATE 29.4 MEQ/L (21.0-32.0); BLOOD UREA NITROGEN 13 MG/DL (7-18); CALCIUM 8.6 MG/DL (8.5-10.1); CHLORIDE 108 MEQ/L (98-107); CREATININE 1.61 MG/DL (0.60-1.30); GLOMERULAR FILTRATION RATE 57 ML/MIN (>89); GLUCOSE,RANDOM 75 MG/DL (74-106); SODIUM (NA) 142 MEQ/L (136-145)
[2017-12-14 09:52] LABS: CHOLESTEROL 119 MG/DL (120-200)
[2017-12-14 09:54] LABS: CHOLESTEROL/ HDL RATIO 3.61 RATIO; HDL CHOLESTEROL 32.9 MG/DL (40.0-60.0); LDL CHOLESTEROL 55 MG/DL (0-99); TRIGLYCERIDES 154 MG/DL (42-150)
[2017-12-14] MEDS: ACETAMINOPHEN 325 MG TAB PO PRN ×3 (14:47→15:52)
[2017-12-14 14:48] LABS: HEMOGLOBIN A1C 5.8 % (4.3-6.0)
[2017-12-14 17:01] VITALS: BP 132/59; PULSE 63; RESP 17; TEMP 98.7; O2SAT 97
[2017-12-14] MEDS: traZODone HCL 100 MG TAB PO SCH (21:00)
[2017-12-14] MEDS: HALOPERIDOL LACTATE 5 MG/ML AMP IM PRN (22:04)
--- NOTE | 2017-12-15 08:57 | EKG ---
Date Performed: 12/14/2017 Time Performed: 09:35:11 PTAGE: 47 years EKG: Sinus rhythm NONSPECIFIC T-WAVE ABNORMALITY BORDERLINE ECG PREVIOUS TRACING : 11/09/2017 17.07 DOCTOR: Marija Deleon Interpretating Date/Time 12/15/2017 08:55:59
[2017-12-15] MEDS: HALOPERIDOL 5 MG TAB PO SCH ×2 (09:00→20:29)
[2017-12-15] MEDS: PANTOPRAZOLE SOD 40 MG DELAYED RELEASE TAB PO SCH (09:00)
[2017-12-15] MEDS: TRIHEXYPHENIDYL HCL 2 MG TAB PO SCH ×2 (09:00→20:29)
[2017-12-15] MEDS: HALOPERIDOL LACTATE 5 MG/ML AMP IM PRN (10:14)
--- NOTE | 2017-12-15 15:42 | HHI.PYPN ---
Subjective Chief Complaint: Psychosis Remarks This is a request for second opinion. Admission note was reviewed and I agree with the history. Patient was seen and case was discussed with nursing. Patient is irritable with poor insight. He has been agitated and refusing to take his p.o. medications and got an IM of Haldol. Per nursing this sedated him and he became more cooperative. Mental Status Examination Appearance: Other (Fair grooming and hygiene. In hospital attire.) Consciousness: Alert, Vigilant Orientation: Person, Place (At least) Motor Activity: Normal gait Speech: Unremarkable Language: Adequate Fund of Knowledge: Adequate Attention and Concentration: Easily Distracted Memory: Unremarkable Mood: Angry, Irritable, Other (Dysphoric) Affect: Other (Restricted, consistent with mood) Thought Process & Associations: Intact Thought Content: Hallucinations (Refuses but likely responding), Delusional Hallucination Type: Other (Appears internally preoccupied) Delusion Type: Paranoid Suicidal Ideation: No (Unreliable to contract for safety) Suicidal Plan: No Suicidal Intention: No Homicidal Ideation: No (Unreliable to contract for safety) Homicidal Plan: No Homicidal Intention: No Insight: Poor Judgment: Poor Results Vitals/IOs Vital Signs Date Time Temp Pulse Resp B/P (MAP) Pulse Ox O2 Delivery O2 Flow Rate FiO2 12/14/17 17:01 98.7 63 17 132/59 (83) 97 12/12/17 22:05 Room Air Assessment & Plan Problem List: (1) Acute exacerbation of chronic paranoid schizophrenia ICD Codes: F20.0 - Paranoid schizophrenia Assessment & Plan I agree with the first opinion to continue petition. Criteria include agitation Justification for Cont. Inpt. Patient would decompensate in a less restrictive setting Request HC Surrog/Guard Advoc?: Yes Ricardo Castillo DO Dec 15, 2017 15:42
[2017-12-15] MEDS: traZODone HCL 100 MG TAB PO SCH (20:29)
[2017-12-16 06:06] VITALS: BP 127/78; PULSE 59; RESP 17; TEMP 97.8; O2SAT 98
[2017-12-16] MEDS: TRIHEXYPHENIDYL HCL 2 MG TAB PO SCH ×2 (08:45→20:33)
[2017-12-16] MEDS: HALOPERIDOL 5 MG TAB PO SCH (08:45)
[2017-12-16] MEDS: PANTOPRAZOLE SOD 40 MG DELAYED RELEASE TAB PO SCH (08:45)
--- NOTE | 2017-12-16 12:25 | HHI.PYPN ---
Subjective Chief Complaint: Psychosis Remarks Patient was seen and case discussed with nursing. Patient's behavior has significantly improved. He has not needed any ETO symptoms now compliant with his p.o. medication. We will increase the dose today to 10 mg p.o. twice daily. Patient continues to have poor insight and minimizes symptoms. However , grandiose delusions were elicited where he believes he could travel to [place] or [place] and they would invite him to take the throne. Mental Status Examination Appearance: Other (Fair grooming and hygiene. In hospital attire.) Consciousness: Alert, Vigilant Orientation: Person, Place (At least) Motor Activity: Normal gait Speech: Unremarkable Language: Adequate Fund of Knowledge: Adequate Attention and Concentration: Easily Distracted Memory: Unremarkable Mood: Angry, Irritable, Other (Dysphoric) Affect: Other (Restricted, consistent with mood) Thought Process & Associations: Intact Thought Content: Delusional Hallucination Type: Other (Appears internally preoccupied) Delusion Type: Bizarre, Paranoid Suicidal Ideation: No (Unreliable to contract for safety) Suicidal Plan: No Suicidal Intention: No Homicidal Ideation: No (Unreliable to contract for safety) Homicidal Plan: No Homicidal Intention: No Insight: Poor Judgment: Poor Results Vitals/IOs Vital Signs Date Time Temp Pulse Resp B/P (MAP) Pulse Ox O2 Delivery O2 Flow Rate FiO2 12/16/17 06:06 97.8 59 17 127/78 (94) 98 12/12/17 22:05 Room Air Assessment & Plan Problem List: (1) Acute exacerbation of chronic paranoid schizophrenia ICD Codes: F20.0 - Paranoid schizophrenia Assessment & Plan Increase Haldol to 10 mg p.o. twice daily Justification for Cont. Inpt. Patient would decompensate in a less restrictive setting Request HC Surrog/Guard Advoc?: Yes Ricardo Castillo DO Dec 16, 2017 12:25
[2017-12-16] MEDS ORDERED: diphenhydrAMINE HCL 50 MG CAP PO ONE (13:30)
[2017-12-16 15:55] VITALS: BP 120/64; PULSE 68; RESP 18; TEMP 97.8; O2SAT 97
[2017-12-16] MEDS: ALUMINUM/MAGNESIUM/SIMETH 30 ML CUP PO PRN (17:18)
[2017-12-16] MEDS: traZODone HCL 100 MG TAB PO SCH (20:34)
[2017-12-16] MEDS: HALOPERIDOL 10 MG TAB PO SCH (20:34)
[2017-12-17 06:17] VITALS: BP 113/59; PULSE 62; RESP 18; TEMP 97.1; O2SAT 62
[2017-12-17] MEDS: TRIHEXYPHENIDYL HCL 2 MG TAB PO SCH (08:43)
[2017-12-17] MEDS: PANTOPRAZOLE SOD 40 MG DELAYED RELEASE TAB PO SCH (08:43)
[2017-12-17] MEDS: HALOPERIDOL 10 MG TAB PO SCH ×2 (08:43→20:30)
--- NOTE | 2017-12-17 09:33 | HHI.PYPN ---
Subjective Chief Complaint: Psychosis Remarks Patient seen and examined with nurse. Chart reviewed. Case discussed with nursing staff who reports patient minimizes need for treatment but is medication compliant. On my examination today, the patient is somewhat calmer although he still has an irritable edge. His insight into need for treatment is poor. He denies any SI or HI. Denies any AVH. He remains somewhat watchful but denies any subjective paranoia. He denies any side effects from medications besides some stiffness in tongue. No other physical complaints. Spoke with patient's sister/health care surrogate over the phone. She provides consent for Haldol Decanoate after discussion of the R/B/A. Review of Systems ROS Limitations: Psychotic Except as stated in HPI: all other systems reviewed are Neg Mental Status Examination Appearance: Appropriate Consciousness: Alert, Vigilant Orientation: Person, Place (At least) Motor Activity: Other (No hand tremor, no dyskinesia, no dystonia noted. No hypomimia. Free movement of tongue.) Speech: Unremarkable Language: Adequate Fund of Knowledge: Adequate Attention and Concentration: Easily Distracted Memory: Unremarkable Mood: Irritable Affect: Irritable, Blunt Thought Process & Associations: Intact Thought Content: Delusional Hallucination Type: None Delusion Type: Paranoid (Decreasing) Suicidal Ideation: No Suicidal Plan: No Suicidal Intention: No Homicidal Ideation: No Homicidal Plan: No Homicidal Intention: No Insight: Poor Judgment: Poor Results Labs Labs reviewed. GFR fairly stable. Vitals/IOs Vital Signs Date Time Temp Pulse Resp B/P (MAP) Pulse Ox O2 Delivery O2 Flow Rate FiO2 12/17/17 06:17 97.1 62 18 113/59 (57) 62 Assessment & Plan Problem List: (1) Acute exacerbation of chronic paranoid schizophrenia ICD Codes: F20.0 - Paranoid schizophrenia Assessment & Plan Initiate Haldol Decanoate 100 mg IM. Plan for additional Haldol Decanoate after appropriate interval to bring total dose to 10-15 times the oral daily dose. Continue oral Haldol supplementation. Titrate Artane to 5 mg twice daily for subjective tongue stiffness. Continue to monitor on the inpatient unit. Continue other medications and care as ordered. Justification for Cont. Inpt. Risk for decompensation in less restrictive environment. Medication changes. Resolving impairments in reality construction. Discharge Planning Pending psychiatric stabilization. Possible discharge middle or end of the week. Request HC Surrog/Guard Advoc?: Yes Sundeep Pollard MD Dec 17, 2017 09:33
[2017-12-17] MEDS ORDERED: HALOPERIDOL DECANOATE 50 MG/ML VIAL IM ONE (09:45)
[2017-12-17] MEDS: TRIHEXYPHENIDYL HCL 5 MG TAB PO SCH ×2 (10:10→20:29)
[2017-12-17] MEDS ORDERED: TRIHEXYPHENIDYL HCL 5 MG TAB PO ONE (10:30)
[2017-12-17 14:00] VITALS: BP 115/71; PULSE 60; RESP 18; TEMP 98.1
[2017-12-17] MEDS: traZODone HCL 100 MG TAB PO SCH (20:29)
[2017-12-18 05:54] VITALS: BP 120/70; PULSE 71; RESP 16; TEMP 97.3; O2SAT 98
[2017-12-18] MEDS: PANTOPRAZOLE SOD 40 MG DELAYED RELEASE TAB PO SCH (09:05)
[2017-12-18] MEDS: TRIHEXYPHENIDYL HCL 5 MG TAB PO SCH ×2 (09:05→20:02)
[2017-12-18] MEDS: HALOPERIDOL 10 MG TAB PO SCH ×2 (09:05→20:02)
--- NOTE | 2017-12-18 11:04 | HHI.PYPN ---
Subjective Chief Complaint: Psychosis Remarks Patient seen and examined with nurse. Chart reviewed. Case discussed with nursing staff. No behavioral issues noted overnight except that patient did initially refuse psychotropics, reportedly because he believed he no longer needed them now that he has received long-acting injectable. Case discussed in treatment team. On my examination today, the patient is sitting calmly in the day area. He denies any side effects from medications, nor does he have any evidence of motor side effects or other side effects from Risperdal Consta. He denies any AVH. Insight into her need for treatment is fair to poor at best, and I have reinforced the need for oral supplementation of patient's long- acting injectable. No physical complaints. Review of Systems Except as stated in HPI: all other systems reviewed are Neg Mental Status Examination Appearance: Appropriate Consciousness: Alert, Vigilant Orientation: Person, Place Motor Activity: Other (No tremor, no dystonias, no dyskinesias noted. No complaints of tongue stiffness.) Speech: Unremarkable Language: Adequate Fund of Knowledge: Adequate Attention and Concentration: Easily Distracted Memory: Unremarkable Mood: Irritable (decreasing) Affect: Irritable, Blunt Thought Process & Associations: Intact Thought Content: Delusional Hallucination Type: None Delusion Type: Paranoid (Continues to decrease) Suicidal Ideation: No Suicidal Plan: No Suicidal Intention: No Homicidal Ideation: No Homicidal Plan: No Homicidal Intention: No Insight: Poor Judgment: Poor Results Labs Labs reviewed. Vitals/IOs Vital Signs Date Time Temp Pulse Resp B/P (MAP) Pulse Ox O2 Delivery O2 Flow Rate FiO2 12/18/17 05:54 97.3 71 16 120/70 (87) 98 Assessment & Plan Problem List: (1) Acute exacerbation of chronic paranoid schizophrenia ICD Codes: F20.0 - Paranoid schizophrenia Assessment & Plan No evidence of any ill effects from Consta. Continue oral Haldol supplementing Risperdal Consta. Continue Artane as ordered. Patient refusing trazodone and not having sleep difficulty per nursing staff; I will make this p.r.n.. Continue to monitor on the inpatient unit. Continue other medications and care as ordered. Justification for Cont. Inpt. Risk for decompensation in less restrictive environment. Discharge Planning Pending psychiatric stabilization. Request HC Surrog/Guard Advoc?: Yes Sundeep Pollard MD Dec 18, 2017 11:04
[2017-12-18 18:08] VITALS: BP 123/63; PULSE 54; RESP 18; TEMP 98; O2SAT 100
[2017-12-18] MEDS: ALUMINUM/MAGNESIUM/SIMETH 30 ML CUP PO PRN (19:54)
[2017-12-18] MEDS ORDERED: traZODone HCL 100 MG TAB PO PRN (21:00)
[2017-12-19 05:43] VITALS: BP 131/78; PULSE 74; RESP 18; TEMP 97.1; O2SAT 98
--- NOTE | 2017-12-19 08:33 | HHI.PYPN ---
Subjective Chief Complaint: Psychosis Remarks Patient seen and examined with nurse. Chart reviewed. Case discussed with nursing staff who reports patient has been no behavioral problem overnight. On my exam, patient denies side effects from medications including Consta. He remains a little guarded but denies any SI/HI or AVH. He thinks he may have been on Risperdal in the past when he was at [facility]. No physical complaints. Called over to [facility] pharmacy. Per their records, patient was in fact on Risperdal from the end of 2010 through 2011. Although tolerability is note noted in pharmacy records, the fact that he was on this medication for several months at least suggests to me that he did not experience severe side effects from this medication. Review of Systems Except as stated in HPI: all other systems reviewed are Neg Mental Status Examination Appearance: Appropriate Consciousness: Alert, Vigilant Orientation: Person, Place (at least) Motor Activity: Other (No motor abnormalities noted. No signs of EPS, no dystonias, or dyskinesias.) Speech: Unremarkable Language: Adequate Fund of Knowledge: Adequate Attention and Concentration: Easily Distracted Memory: Unremarkable Mood: Irritable (Mild) Affect: Irritable (Mild), Blunt Thought Process & Associations: Intact Thought Content: Delusional Hallucination Type: None Delusion Type: Other (Guarded) Suicidal Ideation: No Suicidal Plan: No Suicidal Intention: No Homicidal Ideation: No Homicidal Plan: No Homicidal Intention: No Insight: Poor Judgment: Poor Results Labs Labs reviewed Vitals/IOs Vital Signs Date Time Temp Pulse Resp B/P (MAP) Pulse Ox O2 Delivery O2 Flow Rate FiO2 12/19/17 05:43 97.1 74 18 131/78 (95) 98 Assessment & Plan Problem List: (1) Acute exacerbation of chronic paranoid schizophrenia ICD Codes: F20.0 - Paranoid schizophrenia Assessment & Plan No evidence of any ill effects from Risperdal Consta. Continue oral Haldol supplementing the Risperdal Consta. Continue to monitor on inpatient unit. Continue other medications and care as ordered. Justification for Cont. Inpt. Risk for decompensation in less restrictive environment. Discharge Planning Patient declining to sign voluntary. Pending outcome of [place]. Request HC Surrog/Guard Advoc?: Yes Sundeep Pollard MD Dec 19, 2017 08:33
[2017-12-19] MEDS: HALOPERIDOL 10 MG TAB PO SCH ×2 (08:45→20:14)
[2017-12-19] MEDS: PANTOPRAZOLE SOD 40 MG DELAYED RELEASE TAB PO SCH (08:45)
[2017-12-19] MEDS: TRIHEXYPHENIDYL HCL 5 MG TAB PO SCH ×2 (08:45→20:14)
[2017-12-19 17:40] VITALS: BP 131/68; PULSE 58; RESP 16; TEMP 97.1; O2SAT 98
[2017-12-19] MEDS: ALUMINUM/MAGNESIUM/SIMETH 30 ML CUP PO PRN (20:24)
[2017-12-20 05:58] VITALS: BP 124/70; PULSE 65; RESP 18; TEMP 98.5; O2SAT 98
[2017-12-20] MEDS: PANTOPRAZOLE SOD 40 MG DELAYED RELEASE TAB PO SCH (08:43)
[2017-12-20] MEDS: TRIHEXYPHENIDYL HCL 5 MG TAB PO SCH (08:43)
[2017-12-20] MEDS: HALOPERIDOL 10 MG TAB PO SCH (08:43)
[2017-12-20] MEDS ORDERED: PANT40TA3 PO (10:34)
[2017-12-20] MEDS ORDERED: HALO10TA PO (10:34)
[2017-12-20] MEDS ORDERED: TRIH5TAB2 PO (10:34)
--- NOTE | 2017-12-20 10:34 | HHI.DS ---
Psychiatry Discharge Summary Inpatient Psychiatric care?: Yes Advance Directive: No Reason Not Provided: refused Mental Health AdvanceDirective: No Health Care Proxy: No Admission Admission Date Dec 13, 2017 at 11:11 Admission Diagnosis: (1) Acute exacerbation of chronic paranoid schizophrenia ICD Code: F20.0 - Paranoid schizophrenia Brief History Mr. Araujo is a 47-year-old male with a history of schizophrenia who presents under an ex parte order initiated by his outpatient case coordinator alleging that the patient has been noncompliant with psychotropic medications and has been threatening tenants at his residence. Reviewing the electronic medical record, I note that the patient was hospitalized under my care in October of this year. Patient seen and examined with nurse. Chart reviewed. Case discussed with nursing staff. On my examination today, patient presents as irritable. He is paranoid and internally stimulated. He insists "I'm not an ACT patient no more. I'm not on no psych meds, all I'm on is my health meds." Affect is dysphoric and irritable. He refuses to sit for the interview and can be seen pacing the unit following our interview. This provider also overhears patient muttering into hotbed transfer operator on unit phone about "the whole building come down." Unclear if he is actually speaking to anyone. He denies SI/HI but seems decidedly unreliable to contract for safety. Decides dysphoria, I can elicit no depressive or hypomanic/manic symptoms. Besides the paranoia, no other delusional material elicited. Psychiatric interview is limited as patient is unable to tolerate extended interview. He finally says "I don't want to answer these questions" and shuts down. He verbalizes no acute physical complaints. I am unable to obtain any meaningful past psychiatric, family, chemical dependency or social history from the patient at this point because of his degree of psychiatric symptomatology. I did endeavor to reach his sister Karen Araujo at the number listed in EMR and left a generic voicemail requesting a call back. I was able to reach patient's sister Jacey Araujo at number listed in EMR. She is willing to act as HCS and is in agreement with the treatment plan as outlined below. She reports that the patient has been increasingly paranoid in the last 2-3 weeks, and she suspects patient has been medication non-adherent. She notes that within the last few days patient was over at her house doing some yard work when he began threatening Jacey and her sister. She notes that his threats were "really scary." We discuss possible initiation of BANGURA antipsychotic to reduce the risk of medication nonadherence, and Jacey seems supportive of this. Tobacco Use In Past 30 Days: Refused To Answer Alcohol Use: Monthly or Less Hospital Course Patient was admitted to a locked, inpatient psychiatric unit. Appropriate precautions were in place throughout patient's hospital stay. Patient was seen and examined on the unit by psychiatry and also visited by counselor. Psychotropic medications were adjusted. Patient received long-acting injectable Risperdal Consta and tolerated this agent well without side effects. Patient had some improvement in presenting psychiatric symptomatology during the course of his hospital stay. Patient's behavior did improve with the benefit of pharmacologic treatment. There was no evidence of suicidality or homicidality on the inpatient unit. Patient's case was presented to the [place] act court. I have provided testimony that the patient continues to exhibit paranoia and has poor insight into need for treatment. I articulated concerns that the patient would become nonadherent with medications, relapse to severely decompensated psychotic state and become threatening once again as was alleged in the ex parte. The dental nurse has ordered the patient's discharge from the inpatient psychiatric unit today. The patient leaves AGAINST MEDICAL ADVICE. Psychiatric follow-up as arranged by counselor. Patient is also to follow up with primary care. Patient to return to psychiatric emergency room for any concerning psychiatric symptoms. Since he is tolerating it well, I have elected to continue the Risperdal Consta on discharge. Results Blood Pressure 124 / 70 Vital Signs Date Time Temp Pulse Resp B/P (MAP) Pulse Ox O2 Delivery O2 Flow Rate FiO2 12/20/17 05:58 98.5 65 18 124/70 (88) 98 Laboratory Results Test 12/14/17 08:40 Cholesterol Level 119 MG/DL (120-200) HDL Cholesterol 32.9 MG/DL (40.0-60.0) Hemoglobin A1c 5.8 % (4.3-6.0) LDL Cholesterol 55 MG/DL (0-99) Triglycerides Level 154 MG/DL (42-150) Summary of Procedures None done Imaging None done Pending results at discharge: No Medications # of Antipsychotic meds at D/C: 2 Appropriate >1 Antipsych meds?: 4 Approp Antipsych med options 1 - Minimum of three failed multiple trials of monotherapy. 2 - Documented plan to taper to monotherapy due to previous use of multiple meds OR cross-taper in progress at D/C. 3 - Documentation of augmentation of Clozapine. 4 - Justification other than those listed in allowable values 1-3, document here : Oral Haldol temporarily supplementing Risperdal Consta. Discharge Discharge Date: Dec 20, 2017 Discharge Diagnosis: (1) Acute exacerbation of chronic paranoid schizophrenia Diagnosis: Principal ICD Code: F20.0 - Paranoid schizophrenia Pt Condition on Discharge: Guarded (because AMA discharge) Discharge Disposition: Discharge Home Discharge Instructions Diet Instructions: As Tolerated, No Restrictions Activities you can perform: Weight Bearing as Akanksha Scheduled Appointment: [facility] Appointment Date: December 27, 2017 Appointment Time: 12pm New Orders: BASIC METABOLIC PROF - 1 Week New Medications: Risperidone Inj (Risperdal Consta Inj) 25 Mg/2 Ml Inj 25 MG IM Q14D for Mental Health, #2 VIAL 0 Refills This dose of Risperdal Consta is due on 12/31/17. Discuss with outpatient provider how to taper/discontinue oral antipsychotic. Haloperidol (Haloperidol) 10 Mg Tab 10 MG PO BID for Mental Health for 15 Days, #30 TAB 1 Refill Pantoprazole (Pantoprazole) 40 Mg Tab 40 MG PO DAILY for Health for 15 Days, #15 TAB 1 Refill Trihexyphenidyl (Trihexyphenidyl) 5 Mg Tab 5 MG PO Q12HR for Side effect management for 15 Days, TAB 1 Refill Continued Medications: Trazodone (Trazodone) 50 Mg Tab 100 MG PO HS for Mental Health for 15 Days, TAB 1 Refill Discontinued Medications: Haloperidol (Haloperidol) 10 Mg Tab 10 MG PO HS for Mental Health for 15 Days, TAB 1 Refill Omeprazole (Omeprazole) 40 Mg Cap 40 MG PO DAILY, #30 CAP 0 Refills Trihexyphenidyl (Trihexyphenidyl) 2 Mg Tab 2 MG PO BID for Mental Health for 15 Days, #30 TAB 1 Refill Discharge Time <= 30 minutes Mental Status Examination Appearance: Appropriate Consciousness: Alert, Vigilant Orientation: Person, Place (at least) Motor Activity: Normal gait, Other (No tremor, no dystonia, no dyskinesia, no other motor abnormalities noted.) Speech: Unremarkable Language: Adequate Fund of Knowledge: Adequate Attention and Concentration: Adequate Memory: Unremarkable Mood: Other (Somewhat dysphoric) Affect: Irritable Thought Process & Associations: Intact Thought Content: Delusional Hallucination Type: None Delusion Type: Paranoid Suicidal Ideation: No Suicidal Plan: No Suicidal Intention: No Homicidal Ideation: No Homicidal Plan: No Homicidal Intention: No Insight: Poor Judgment: Poor Discharge/Advance Care Plan Health Problems: (1) Acute exacerbation of chronic paranoid schizophrenia Goals to promote your health * To prevent worsening of your condition and complications * To maintain your health at the optimal level Directions to meet your goals Take your medications as prescribed Follow your dietary instruction Follow activity as directed Keep your appointments as scheduled Take your immunizations and boosters as scheduled If your symptoms worsen call your PCP, if no PCP go to Urgent Care Center or Emergency Room For 24/ questions related to your inpatient stay or results of tests pending at discharge, please contact Dr. Sundeep Pollard at Smoking is Dangerous to Your Health. Avoid second hand smoking Sundeep Pollard MD Dec 20, 2017 10:34
[2017-12-20] MEDS ORDERED: RISP25P IM (10:36)
== END 2017-12-20 11:50 | disposition home or self-care (01) | DRG 885 ==
LOC: NEPJ 17:20 → NEDA 12-13 11:11 → H270 12-13 12:05
PROVIDERS: ADMIT Psychiatry & Neurology Psychiatry; ATTEND Psychiatry & Neurology Psychiatry
DX: F20.0 Paranoid schizophrenia (principal); Z91.19 Patient's noncompliance with other medical treatment and regimen; K21.9 Gastro-esophageal reflux disease without esophagitis
CPT/HCPCS: 80048; 80053; 80061; 80307; 83036; 84443; 85025; 93005; 99285; J1630; J2060; Q0163

== ENCOUNTER 2018-03-06 16:43 | Inpatient (IN) ==
--- NOTE | 2018-03-06 18:12 | ED ---
HPI General Chief Complaint: Psychiatric Symptoms Stated Complaint: Pysch Eval/VCSO Time Seen by Provider: 03/06/18 17:16 History of Present Illness HPI Narrative: Patient comes into the emergency department under exparte for psychiatric evaluation. Patient states he is uncertain as to why he is here. States he showed up at home from work and found a police there with an exparte. Patient states he has been cooperative. Patient is refusing all medical treatment at this time. Patient does not want blood draws. Denies any medical complaints or concerns at this time outside of not wanting to be here. Patient appears somewhat agitated. Related Data Allergies Allergy/AdvReac Type Severity Reaction Status Date / Time No Known Allergies Allergy Unknown Uncoded 11/09/17 12:14 Review of Systems Except as stated in HPI: all other systems reviewed are negative Exam Narrative Exam Narrative: GENERAL: Well-developed, overly nourished, in no acute distress , and non-ill appearing. SKIN: Focused skin assessment warm and dry. HEAD: Atraumatic. Normocephalic. EYES: Pupils equal and round. EOMI. No scleral icterus. No injection or drainage. ENT: No nasal bleeding or discharge. Mucous membranes pink and moist. NECK: Trachea midline. Supple. No nuclear rigidity. RESPIRATORY: No accessory muscle use. No respiratory distress. MUSCULOSKELETAL: No obvious deformities. No clubbing. No cyanosis. No edema. Full range of motion. NEUROLOGICAL: Awake and alert. No obvious cranial nerve deficits. Motor grossly within normal limits. Normal speech. PSYCHIATRIC: Agitated. Medical Decision Making MDM Narrative Medical decision making narrative: Patient was seen and examined. Patient refused labs. Patient medically cleared for further treatment and evaluation by psych. Final disposition per psych. Differential Diagnosis Differential Diagnosis: Acute psychosis, paranoia, well check, nonspecific mood disorder Discharge Plan Discharge Disposition Patient Disposition: 30 Still Patient Discharge Details Diagnosis: Medical clearance for psychiatric admission Physicians Team ED Provider: Jacinta Manjarrez ED Midlevel Provider: Jarad Alexander Primary Care Provider: Primary Care Alejandra Best ED Status: Medically Cleared
[2018-03-06 22:35] LABS: Amphetamine Screen,Urine Neg (Neg); Barbiturate Screen,Urine Neg (Neg); Cannabinoid Screen,Urine Neg (Neg); Cocaine Screen,Urine Neg (Neg)
[2018-03-06 22:51] LABS: Opiate Screen,Urine Neg (Neg)
[2018-03-07] MEDS ORDERED: Bisacodyl 10 MG Supp RECTAL PRN (08:59)
[2018-03-07] MEDS ORDERED: Haloperidol Inj 5 MG/ML Ampul IM PRN (08:59)
--- NOTE | 2018-03-07 15:30 | P.HPPSY ---
Provisional Diagnosis Admission Date: March 07, 2018 08:59 Yelm I.: Schizophrenia Yelm II.: Schizophrenia Yelm III.: No significant medical history Competence Certification of Person's Competence To Provide Express and Informed Consent I have personally examined Hussain Araujo, a person being served at [facility], [place] on, March 07, 2018 1518. Express and informed consent means consent voluntarily given in writing, by a competent person, after sufficient explanation and disclosure of the subject matter involved to enable the person to make a knowing and willful decision without any element of force, fraud, deceit, duress, or other form of constraint or coercion. This person is 18 years of age or older, is not now known to be incompetent to consent to treatment with a guardian advocate, and does not have a health care surrogate or proxy currently making medical treatment decisions. I have found this person to be one of the following: [] Competent to provide express and informed consent, as defined above, for voluntary admission to this facility and is competent to provide express and informed consent for treatment. He/she has the consistent capacity to make well reasoned, willful, and knowing decisions concerning his or her medical or mental health treatment. The person fully and consistently understands the purpose of the admission for examination/placement and is fully capable of personally exercising all rights assured [place] Incompetent to provide express and informed consent to voluntary admission, and this is incompetent to provide express and informed consent to treatment. The person must be transferred to involuntary status and a petition for a guardian advocate filed with the Circuit Court. [x] Refusing to provide express and informed consent to voluntary admission but is competent to provide express and informed consent for treatment. The person must be discharged or transferred to involuntary status. Form shall be completed within 24 hours of a person's arrival at the receiving facility and filed in the clinical record of each person: 1. Admitted on a voluntary basis 2. Permitted to provide express and informed consent to his/her own treatment 3. Allowed to transfer from involuntary to voluntary status 4. Prior to permitting a person to consent to his or her own treatment after having been previously found incompetent to consent to treatment. History of Present Illness Capacity: Has capacity History of Present Illness: The patient is a 47-year-old -[place] man, [facility] [place], single, unemployed, with extensive psychiatric history of schizophrenia, previous psychiatric hospitalizations, he was hospitalized here under the care of Dr. Pollard in early 2017, documentation reviewed, noncompliant with medications, no significant medical history, who comes into the emergency department under exparte for psychiatric evaluation. Patient states he is uncertain as to why he is here. States he showed up at home from work and found a police there with an exparte. Patient states he has been cooperative. Patient is refusing all medical treatment at this time. Patient does not want blood draws. Denies any medical complaints or concerns at this time outside of not wanting to be here. Patient appears somewhat agitated. EMR was reviewed. No collateral information available at this moment. On my psychiatric evaluation I find the patient that is oppositional, defiant, he stated that he does not need to be here and he wants to be discharged. The patient initially states that he does not have any psychiatric problem, that he has been is diagnosed with schizophrenia, he is kind of grandiose, and stated that he has a bachelor's degree, that he is smarter that everybody here there is no reason to keep him in this place. The patient is kind of verbally hostile, refusing to answer many of my questions. Had to be redirected in multiple locations. The patient reports that he does not want to answer my questions because "you are making a report against me". As per ER staff the patient has being kind of agitated, pacing back and forth in the unit, but he has not been aggressive or agitated so far - Inpatient Certification I certify that the inpatient services were ordered in accordance with Medicare regulations governing the order. This includes certification that hospital inpatient services are reasonable and necessary and in the case of services not specified as inpatient-only under 42 CFR 419.22(n), that they are appropriately provided as inpatient services in accordance to with the 2-midnight benchmark under 43 CFR 412.3(e) I certify that inpatient psychiatric hospital services are medically necessary. Evaluation and treatment and/or diagnostic testing are expected to improve the patient's condition. The patient needs on a daily basis, active treatment furnished directly by or requiring the supervision of inpatient psychiatric facility personnel. Estimated Total Length of Stay (Days): 7 Plans for Post Hospital Care: Home Review of Systems Respiratory: Denies change in phlegm color, Denies chest congestion, Denies cough, Denies coughing up blood, Denies excessive phlegm production, Denies pain on inspiration, Denies pain with cough, Denies shortness of breath, Denies shortness of breath with activity, Denies snoring, Denies stridor, Denies wheezing, Denies other Gastrointestinal: Denies abdominal pain, Denies belching, Denies black, tarry stools, Denies bloating, Denies bright, red blood in stools, Denies change in bowel habits, Denies constant urge to pass stool, Denies change in stools, Denies coffee ground vomit, Denies constipation, Denies cramping, Denies difficulty swallowing, Denies excessive passing of gas, Denies feeling full early, Denies heartburn, Denies incontinent of stools, Denies loose stools, Denies nausea, Denies pain with swallowing, Denies vomiting, Denies vomiting blood, Denies other Genitourinary: Denies blood in semen, Denies blood in urine, Denies decreased urination, Denies difficulty urinating, Denies difficulty with ejaculations, Denies erectile dysfunction, Denies genital lesions, Denies genital pain, Denies painful urination, Denies side pain, Denies frequent nighttime urination , Denies painful ejaculations, Denies penile discharge, Denies scrotal swelling , Denies testicle lump, Denies testicle pain, Denies urinary frequency, Denies urinary hesitancy, Denies urinary incontinence, Denies urinary urgency, Denies other Musculoskeletal: Denies abnormal walking, Denies back pain, Denies body aches, Denies decreased muscle mass, Denies deformity, Denies joint pain, Denies joint swelling, Denies limited joint movement, Denies loss of height, Denies muscle cramps, Denies muscle weakness, Denies neck pain, Denies numbness, Denies radiating pain into limb, Denies stiffness, Denies tingling, Denies other Neurologic: Denies abnormal hearing, Denies abnormal movements, Denies abnormal speech, Denies abnormal walking, Denies behavioral changes, Denies burning sensations, Denies confusion, Denies dizziness, Denies fainting, Denies frequent falls, Denies headache(s), Denies lack of coordination, Denies localized weakness, Denies loss of vision, Denies memory loss, Denies numbness, Denies other visual disturbances, Denies radiating pain, Denies restless legs, Denies convulsions, Denies seizure-like activity, Denies sensory deficit, Denies tingling, Denies tingling/numbness/burning sensations, Denies tremor(s), Denies unsteadiness, Denies weakness, Denies other Psychiatric: Reports paranoia [facility] - History History Provided By: Patient - Family History Family History: Family History (Last Updated 03/07/18 @ 15:25 by Alexander Stone MD) Other Schizophrenia - Tobacco History Second Hand Smoke Exposure: No Smoking Status: Never smoker - Alcohol History How Often Do You Have a Drink Containing Alcohol: Never - Substance Use History Substance History: No History of Abuse - Travel History Recent Travel in the [facility] Within the Last 8 Weeks: No Recent Travel Out of the Country Within the Last 8 Weeks: No Quality Measures - Substance Abuse History Drug or alcohol use in the past 12 months: He denies the use of illegal drugs or alcohol. - Patient Strengths Patient's strengths (minimum of 2): Verbal communication Medications and Allergies Active Medications: Active Medications Acetaminophen (Tylenol) 650 mg PO Q4H PRN PRN Reason: Pain 1-5 or Temp >101F Bisacodyl (Dulcolax Supp) 10 mg RECTAL DAILY PRN PRN Reason: SEVERE CONSITIPATION Haloperidol (Haldol) 5 mg PO BID YONATAN Haloperidol Lactate (Haldol Inj) 5 mg IM Q6H PRN PRN Reason: SEVERE AGITATION Lactulose (Lactulose Liq) 30 ml PO DAILY PRN PRN Reason: SEVERE CONSITIPATION Ziprasidone (Geodon Inj) 10 mg IM Q12H PRN PRN Reason: SEVERE AGITATION Allergies Allergy/AdvReac Type Severity Reaction Status Date / Time No Known Allergies Allergy Unknown Uncoded 11/09/17 12:14 Results - Labs Labs: Laboratory Results - last 24 hr 03/06/18 17:31 Urine Opiates Screen Neg Ur Barbiturates Screen Neg Ur Amphetamines Screen Neg U Benzodiazepines Scrn Neg Urine Cocaine Screen Neg U Cannabinoids Screen Neg Exam Vital signs: Vital Signs 03/07/18 10:48 Temperature 98.4 F Pulse Rate 73 Respiratory Rate 17 Blood Pressure 151/81 H Pulse Oximetry 100 Intake & Output 03/06/18 03/07/1803/07/18 18:59 06:59 18:59 Output Total 200 / 200 Balance -200 / -200 Weight 107.7 kg Output: Urine 200 / 200 Other: # Voids 1 Weight On Admission 107.7 kg Narrative: The patient does not present any EPS, withdrawal symptoms, psychomotor agitation or retardation, no gait disturbance Mental Status Examination Appearance: Appropriate Consciousness: Alert Orientation: x4 Motor Activity: Normal gait Speech: Other (loud) Language: Adequate Fund of Knowledge: Adequate Attention and Concentration: Adequate Memory: Unremarkable Mood: Angry Affect: Irritable Thought Process & Associations: Disorganized Thought Content: Bizarre thinking, Delusional Hallucination Type: None Delusion Type: Bizarre, Paranoid Suicidal Ideation: No Suicidal Plan: No Suicidal Intention: No Homicidal Ideation: No Homicidal Plan: No Homicidal Intention: No Insight: Poor Judgment: Poor Assessment and Plan - Assessment (1) Schizophrenia Code(s): F20.9 - Schizophrenia, unspecified Status: Acute - Plan Plan: Estimated LOS: [] days On psychiatric evaluation today I find a patient that is quite irritable, oppositional and defiant, he seems to be internally preoccupied and quite paranoid, refusing to cooperate with a psychiatric evaluation, with a poor insight, stating that he does not have any psychiatric problem, he denies ever being diagnosed schizophrenia and needed medications. This is a patient with a psychiatric history of schizophrenia, multiple psychiatric hospitalizations, one recent hospitalization in [place], history of noncompliant medications who was [place] acted by counselor due to acute psychosis. The patient seems to be quite unpredictable, psychotic, he could potentially become a danger to self and others, I will admit him in psychiatry for stabilization and safety, collateral information is crucial to complete psychiatric assessment. I will start Haldol 5 mg twice daily. Transfer to 2700 unit. I will consult psychiatry for second opinion. cue worker intervention for psychosocial assessment, to coordinate safe discharge, and collateral information. Justification for Continued Inpatient Stay: Psychiatric admission recommended
[2018-03-07] MEDS ORDERED: Haloperidol 5 MG Tablet PO SCH (21:00)
--- NOTE | 2018-03-08 10:00 | P.CONPSY ---
Provisional Diagnosis Admission Date: March 07, 2018 08:59 [place] I.: 1. Schizophrenia, paranoid type, in acute exacerbation [place] II.: Deferred History of Present Illness Service: Psychiatry Consult date: 03/08/18 Requesting Physician: Alexander Stone Reason for Consult: Second opinion for involuntary psychiatric hospitalization Primary Care Provider: No Primary Care Physician History of Present Illness: Mr. Araujo is a 47-year-old male with a history of schizophrenia and medication nonadherence who presented under an ex parte order initiated by his counselor at [facility], alleging threatening behavior. Patient was seen yesterday for an H&P by Dr. Stone. Reviewing the electronic medical record, I note that the patient was admitted under my care in November of this year. Patient seen and examination attempted with counselor and nurse. Chart reviewed. Case discussed with nursing staff. On my examination today, patient presents as quite guarded and paranoid. Although invited to move to a more private space, patient insists on conducting our interaction in the hallway. He initially refuses any interaction, saying that "I'll just wait for court." He does answer a few questions, such as about SI/HI, but he answers these with a blanket response of "No, no, no" and often answers before I have even completed the question, and so the veracity of his responses is questionable. He denies AVH but appears to be responding to internal stimuli. Affect is dysphoric and irritable. He concludes the interview by saying "No mas." No signs of physical distress. I am unable to obtain any past psychiatric, family , chemical dependency or social history from this patient as he is uncooperative. Given patient's degree of psychiatric decompensation and need for healthcare surrogate, I have reached out to sister Karen Araujo at number listed in EMR. I left generic voicemail requesting a call back. I was able to reach patient's other sister, Jacey at the number listed in the EMR. She highlights patient' s issues with medication non-adherence. She is willing to act as HCS and provides consent for medications as outlined below. I called over to [facility], where patient receives outpatient services, to obtain med list. Patient apparently has not received scripts from them since September of this year (i.e. before he was hospitalized here last). At that time he was taking Haldol, trazodone and Artane. Review of Systems other (Unobtainable due to uncooperative) [facility] - Family History Family History: Family History (Last Updated 03/07/18 @ 15:25 by Alexander Stone MD) Sister Schizophrenia - Substance Use History Substance History: No History of Abuse Medications and Allergies Active Medications: Active Medications Acetaminophen (Tylenol) 650 mg PO Q4H PRN PRN Reason: Pain 1-5 or Temp >101F Bisacodyl (Dulcolax Supp) 10 mg RECTAL DAILY PRN PRN Reason: SEVERE CONSITIPATION Haloperidol (Haldol) 5 mg PO BID YONATAN Last Admin: 03/07/18 23:35 Dose: Not Given Haloperidol Lactate (Haldol Inj) 5 mg IM Q6H PRN PRN Reason: SEVERE AGITATION Lactulose (Lactulose Liq) 30 ml PO DAILY PRN PRN Reason: SEVERE CONSITIPATION Ziprasidone (Geodon Inj) 10 mg IM Q12H PRN PRN Reason: SEVERE AGITATION Allergies Allergy/AdvReac Type Severity Reaction Status Date / Time No Known Allergies Allergy Unknown Uncoded 11/09/17 12:14 Home Medications Medication Instructions Recorded Confirmed Type No Known Home Medications 03/08/18 03/08/18 History Exam Vital signs: Vital Signs 03/07/18 10:48 03/07/18 18:04 03/08/18 06:31 Temperature 98.4 F 98.4 F 98.0 F Pulse Rate 73 61 69 Respiratory Rate 17 16 20 Blood Pressure 151/81 H 136/83 150/79 H Pulse Oximetry 100 98 99 Intake & Output 03/07/18 03/08/18 03/08/18 18:59 06:59 18:59 Weight 107.7 kg Other: Weight On Admission 107.7 kg Narrative: Physical exam completed by ED provider. On my examination today, the patient appears to be in no acute physical distress. No motor abnormalities noted. Labs and vital signs reviewed. Patient refused blood laboratories. A urine toxicology was obtained and this was negative. Mental Status Examination Appearance: Appropriate Consciousness: Alert, Vigilant Orientation: Person, Place (At least) Motor Activity: Normal gait, Other (No motor abnormalities noted) Speech: Other (Terse) Language: Adequate Fund of Knowledge: Adequate Attention and Concentration: Adequate Memory: Unremarkable Mood: Oppositional, Irritable Affect: Irritable, Other (Dysphoric) Thought Process & Associations: Intact Thought Content: Hallucinations, Delusional Hallucination Type: Other (Appears internally stimulated) Delusion Type: Paranoid Suicidal Ideation: No (Unreliable to contract for safety) Homicidal Ideation: No (Unreliable to contract for safety) Insight: Poor Judgment: Poor Assessment and Plan - Assessment (1) Schizophrenia Code(s): F20.9 - Schizophrenia, unspecified Status: Acute - Plan Plan: Given the circumstances of the patient's presentation here, his presentation on my examination today, and the collateral that I have obtained, I concur with Dr. Stone that the patient meets criteria for involuntary psychiatric hospitalization under the [place]. I believe that the patient is unpredictable with respect to risk for violence as a consequence of his decompensated psychotic illness. I have completed the second opinion paperwork. I will be assuming primary care of this case. I will initiate Risperdal 1 mg twice daily with plans to titrate to effect for psychosis. I will make Haldol IM available as needed for oral antipsychotic medication refusal or for severe agitation. I will initiate scheduled Artane as patient has required this in the past with antipsychotics and provide additional Artane as needed for EPS. Trazodone as needed for sleep. [place] to obtain basic laboratories: CBC and CMP and also try to check an EKG for QTc. Continue to monitor on the high acuity unit. Continue other medications and care as ordered. Justification for Continued Inpatient Stay: Impairment in reality construction. Medication changes. High risk for decompensation in less restrictive environment. Concern for impairment in safety. Discharge Planning: Pending psychiatric stabilization Request Healthcare Surrogate/Guardian Advocate?: Yes (1) Schizophrenia Qualifiers: Schizophrenia type: paranoid schizophrenia Qualified Code(s): F20.0 - Paranoid schizophrenia
[2018-03-08] MEDS: risperiDONE 1 MG ODT PO SCH ×2 (13:13→13:15)
[2018-03-08] MEDS: Acetaminophen 325 MG Tablet PO PRN (17:58)
[2018-03-09] MEDS: risperiDONE 1 MG ODT PO SCH ×3 (06:16→20:56)
--- NOTE | 2018-03-09 15:09 | P.PNPSY ---
Subjective Remarks: Patient was seen and case discussed with nursing. Patient remains angry and oppositional with care. He has been refusing his p.o. medication has been getting IM injections. Insight remains poor and he is convinced he has no psychiatric disorder and does not need medication. He is guarded and internally preoccupied. Seclusive to his room Mental Status Examination Appearance: Appropriate Consciousness: Alert, Vigilant Orientation: Person, Place (At least) Motor Activity: Normal gait, Other (No motor abnormalities noted) Speech: Other (Terse) Language: Adequate Fund of Knowledge: Adequate Attention and Concentration: Adequate Memory: Unremarkable Mood: Oppositional, Irritable Affect: Irritable, Other (Dysphoric) Thought Process & Associations: Intact Thought Content: Hallucinations, Delusional (Internally preoccupied) Hallucination Type: Other (Appears internally stimulated) Delusion Type: Paranoid Suicidal Ideation: No (Unreliable to contract for safety) Suicidal Plan: No Suicidal Intention: No Homicidal Ideation: No (Unreliable to contract for safety) Homicidal Plan: No Homicidal Intention: No Insight: Poor Judgment: Poor Assessment and Plan - Assessment (1) Schizophrenia Code(s): F20.9 - Schizophrenia, unspecified Status: Acute - Plan Plan: Continue current treatment plan Justification for Continued Inpatient Stay: Patient would decompensate in a less restrictive setting Request Healthcare Surrogate/Guardian Advocate?: Yes (1) Schizophrenia Qualifiers: Schizophrenia type: paranoid schizophrenia Qualified Code(s): F20.0 - Paranoid schizophrenia
[2018-03-10] MEDS: risperiDONE 1 MG ODT PO SCH ×2 (08:30→20:38)
--- NOTE | 2018-03-10 15:43 | P.PNPSY ---
Subjective Remarks: Patient was seen and case discussed with nursing. Today, he is compliant with his p.o. medication. However he remains irritable guarded and oppositional. Insight is very poor and he feels that he is no need for medication or for this visit. He is guarded with most questions saying that the courts will figure it out. No outbursts, no need for ETO's Mental Status Examination Appearance: Appropriate Consciousness: Alert, Vigilant Orientation: Person, Place (At least) Motor Activity: Normal gait, Other (No motor abnormalities noted) Speech: Other (Terse) Language: Adequate Fund of Knowledge: Adequate Attention and Concentration: Adequate Memory: Unremarkable Mood: Oppositional, Irritable Affect: Irritable, Other (Dysphoric) Thought Process & Associations: Intact Thought Content: Hallucinations, Delusional (Internally preoccupied) Hallucination Type: Other (Appears internally stimulated) Delusion Type: Paranoid Suicidal Ideation: No (Unreliable to contract for safety) Suicidal Plan: No Suicidal Intention: No Homicidal Ideation: No (Unreliable to contract for safety) Homicidal Plan: No Homicidal Intention: No Insight: Poor Judgment: Poor Assessment and Plan - Assessment (1) Schizophrenia Code(s): F20.9 - Schizophrenia, unspecified Status: Acute - Plan Plan: Continue current treatment plan Justification for Continued Inpatient Stay: Patient would decompensate in a less restrictive setting Request Healthcare Surrogate/Guardian Advocate?: Yes (1) Schizophrenia Qualifiers: Schizophrenia type: paranoid schizophrenia Qualified Code(s): F20.0 - Paranoid schizophrenia
[2018-03-11] MEDS: risperiDONE 1 MG ODT PO SCH (08:43)
[2018-03-11] MEDS ORDERED: risperiDONE 2 MG ODT PO SCH ×2 (10:41→21:00)
--- NOTE | 2018-03-11 10:41 | P.PNPSY ---
Subjective Remarks: Patient seen and examined with nurse. Chart reviewed. Case discussed with nursing staff. Per nursing, patient remains very oppositional and angry. On my examination today, the patient insists on conducting the interview in the hallway. He remains quite irritable and oppositional. He denies AVH but appears internally stimulated. Paranoia is present. He denies any SI or HI but seems unreliable to contract for safety in his present state. Insight into mental illness and need for treatment is quite poor. The patient insists " there ain't nothing wrong with me." Denies side effects from medications. No physical complaints. Vital Signs Temp Pulse Resp BP Pulse Ox 03/11/18 06:14 97.4 F L 80 17 132/60 100 03/10/18 17:55 98.4 F 71 18 134/63 97 Intake and Output 03/11/18 03/11/18 03/11/18 06:59 14:59 22:59 Other: Weight 110.7 kg Labs reviewed. No new labs. Review of Systems All other systems reviewed negative except as stated in HPI (Limitation: Psychosis.) Mental Status Examination Appearance: Appropriate Consciousness: Alert, Vigilant Orientation: Person, Place (At least) Motor Activity: Normal gait, Other (No abnormal motor movements noted) Speech: Other (Remains quite terse) Language: Adequate Fund of Knowledge: Adequate Attention and Concentration: Adequate Memory: Unremarkable Mood: Oppositional, Irritable Affect: Irritable, Other (Remains dysphoric) Thought Process & Associations: Intact Thought Content: Hallucinations, Delusional Hallucination Type: Other (Remains internally preoccupied) Delusion Type: Paranoid Suicidal Ideation: No (Unreliable to contract for safety) Suicidal Plan: No Suicidal Intention: No Homicidal Ideation: No (Unreliable to contract for safety) Homicidal Plan: No Homicidal Intention: No Insight: Poor Judgment: Poor Assessment and Plan - Assessment (1) Schizophrenia Code(s): F20.9 - Schizophrenia, unspecified Status: Acute - Plan Plan: Patient with ongoing psychotic symptoms. Titrate Risperdal to 2 mg twice daily to target psychosis. Plan remains for long-acting injectable antipsychotic once we have ensured efficacy of the oral agent. Continue to monitor on the high acuity unit. Continue other medications and care as ordered. Justification for Continued Inpatient Stay: Medication changes. High risk for decompensation in less restrictive environment. Impairment in reality construction. Discharge Planning: Pending psychiatric stabilization Request Healthcare Surrogate/Guardian Advocate?: Yes (1) Schizophrenia Qualifiers: Schizophrenia type: paranoid schizophrenia Qualified Code(s): F20.0 - Paranoid schizophrenia
[2018-03-11] MEDS ORDERED: risperiDONE 1 MG ODT PO PRN (10:46)
[2018-03-11] MEDS: risperiDONE 2 MG ODT PO SCH (21:27)
[2018-03-11] MEDS: Acetaminophen 325 MG Tablet PO PRN (21:33)
[2018-03-12] MEDS: risperiDONE 2 MG ODT PO SCH ×2 (08:36→20:20)
--- NOTE | 2018-03-12 10:51 | P.PNPSY ---
Subjective Remarks: Patient seen and examined with counselor and nurse. Chart reviewed. Case discussed with nursing staff. Nursing feels that patient has been a little less guarded today. Case discussed in treatment team. Therapists note that the patient is withdrawn and tends to isolate. Interactions with patient by therapists are noted to be "short and to the point." On my examination today, the patient remains quite paranoid. He appears internally stimulated. He continues to insist that he has no psychiatric issues and is just waiting to see the dog show judge so that he can be discharged. He denies side effects from medications. No physical complaints. Vital Signs Temp Pulse Resp BP Pulse Ox 03/12/18 05:41 97.4 F L 81 18 155/99 H 100 Labs reviewed. Patient reportedly refused labs this morning. Review of Systems All other systems reviewed negative except as stated in HPI (Limitation: Psychosis, uncoop.) Mental Status Examination Appearance: Appropriate Consciousness: Alert, Vigilant Orientation: Person, Place (At least) Motor Activity: Normal gait, Other (No motor abnormalities noted) Speech: Other (remains fairly radha) Language: Adequate Fund of Knowledge: Adequate Attention and Concentration: Adequate Memory: Unremarkable Mood: Oppositional, Irritable Affect: Irritable, Other (Dysphoric) Thought Process & Associations: Intact Thought Content: Hallucinations, Delusional Hallucination Type: Other (Internally stimulated) Delusion Type: Paranoid Suicidal Ideation: No (Unreliable to contract for safety) Homicidal Ideation: No (Unreliable to contract for safety) Insight: Poor Judgment: Poor Assessment and Plan - Assessment (1) Schizophrenia Code(s): F20.9 - Schizophrenia, unspecified Status: Acute - Plan Plan: Continue Risperdal as ordered for psychosis; this was recently titrated. Plan for further titration to effect. Plan for long-acting injectable antipsychotic. Continue to monitor on the high acuity unit. Continue other medications and care as ordered. Given patient's chronically poor insight into mental illness and need for treatment and poor judgment, I believe the patient would benefit from involuntary outpatient commitment after discharge. I have initiated a petition for outpatient commitment and have consulted for a second opinion. Justification for Continued Inpatient Stay: Impairment in reality construction. High risk for decompensation in less restrictive environment. Discharge Planning: Pending psychiatric stabilization. Possible outpatient commitment. Request Healthcare Surrogate/Guardian Advocate?: Yes (1) Schizophrenia Qualifiers: Schizophrenia type: paranoid schizophrenia Qualified Code(s): F20.0 - Paranoid schizophrenia
--- NOTE | 2018-03-13 09:38 | P.PNPSY ---
Subjective Remarks: Patient seen and examined with nurse. Chart reviewed. Case discussed with nursing staff. Patient medication compliant but continues to refuse laboratories. On my examination today, patient presents as oppositional and irritable. He says "I do not do no medicine." His insight into mental illness and need for treatment is poor. He remains paranoid. He is sarcastic and when I try to ask about symptoms mimics this provider and says "you got a brain, I do too." No side effects from medications. No physical complaints. He is keeping a low profile and hopes the steam crane operator will order his discharge tomorrow. Vital Signs Temp Pulse Resp BP Pulse Ox 03/13/18 06:33 97.8 F 56 L 17 110/71 98 03/12/18 18:21 97.9 F 67 17 142/88 H 96 Patient continues to refuse lab work. Review of Systems All other systems reviewed negative except as stated in HPI (Limitation: Uncooperative) Mental Status Examination Appearance: Appropriate Consciousness: Alert, Vigilant Orientation: Person, Place (At least) Motor Activity: Other (No motoric abnormalities appreciated) Speech: Other (terse) Language: Adequate Fund of Knowledge: Adequate Attention and Concentration: Adequate Memory: Unremarkable Mood: Oppositional, Irritable Affect: Irritable, Other (Remains dysphoric) Thought Process & Associations: Intact Thought Content: Delusional Hallucination Type: None Delusion Type: Paranoid Suicidal Ideation: No (No SI voiced but unreliable to contract for safety) Homicidal Ideation: No (No HI voiced but unreliable to contract for safety) Insight: Poor Judgment: Poor Assessment and Plan - Assessment (1) Schizophrenia Code(s): F20.9 - Schizophrenia, unspecified Status: Acute - Plan Plan: Possibly some improvement with the Risperdal. He does seem less internally preoccupied today. He remains paranoid however, and so I will titrate Risperdal to 3mg BID. Plan remains for Consta or Sustenna so long as Risperdal has adequate efficacy. Continue to monitor on the inpatient unit. Continue other medications and care as ordered. Justification for Continued Inpatient Stay: Impairment in reality construction. Medication changes. High risk for decompensation in less restrictive environment. Discharge Planning: Pending psychiatric stabilization. [place] tomorrow. Working on filing petition for outpatient commitment, likely to be heard at [place] a week from tomorrow. Request Healthcare Surrogate/Guardian Advocate?: Yes (1) Schizophrenia Qualifiers: Schizophrenia type: paranoid schizophrenia Qualified Code(s): F20.0 - Paranoid schizophrenia
[2018-03-13] MEDS: risperiDONE 2 MG ODT PO SCH (09:39)
[2018-03-13] MEDS: risperiDONE 3 MG ODT PO SCH (20:24)
[2018-03-13] MEDS: Acetaminophen 325 MG Tablet PO PRN (20:27)
[2018-03-14] MEDS: risperiDONE 3 MG ODT PO SCH ×2 (08:17→21:06)
--- NOTE | 2018-03-14 12:24 | P.PNPSY ---
Subjective Remarks: Patient seen and case discussed with nursing staff. Chart reviewed. For me today, patient remains oppositional and easily irritable. Remains somewhat paranoid. No side effects from medications. No evident physical distress. Vital Signs Temp Pulse Resp BP Pulse Ox 03/14/18 17:35 98 F 77 18 151/82 H 97 03/14/18 06:00 97.7 F 66 18 126/74 97 Labs reviewed. No new labs. Review of Systems other (Limited ROS today) Mental Status Examination Appearance: Appropriate Consciousness: Alert, Vigilant Orientation: Person, Place (At least) Motor Activity: Other (No abnormal motor movements noted) Speech: Other (terse) Language: Adequate Attention and Concentration: Adequate Mood: Oppositional, Irritable Affect: Irritable, Other (Dysphoric) Thought Process & Associations: Intact Thought Content: Delusional Hallucination Type: None Delusion Type: Paranoid Suicidal Ideation: No (No SI voiced) Homicidal Ideation: No (No HI voiced) Insight: Poor Judgment: Poor Assessment and Plan - Assessment (1) Schizophrenia Code(s): F20.9 - Schizophrenia, unspecified Status: Acute - Plan Plan: Continue Risperdal 3 mg twice daily. To consider titrating to 4 mg twice daily. I am not convinced that we are seeing adequate response to this medication. If patient does not begin to benefit significantly soon, to consider transition to a different antipsychotic. The patient's case was presented to the [place] court and placed in continuance for 4 weeks with sister Jacey to serve as HCS. Justification for Continued Inpatient Stay: Impairment in reality construction. High risk for decompensation in less restrictive environment. Discharge Planning: Pending psychiatric stabilization Request Healthcare Surrogate/Guardian Advocate?: Yes (1) Schizophrenia Qualifiers: Schizophrenia type: paranoid schizophrenia Qualified Code(s): F20.0 - Paranoid schizophrenia
--- NOTE | 2018-03-14 15:43 | P.CONPSY ---
Provisional Diagnosis Admission Date: March 07, 2018 08:59 [place] I.: 1. Schizophrenia, paranoid type, in acute exacerbation [place] II.: Deferred [place] III.: No significant medical history History of Present Illness Service: Psychiatry Consult date: 03/14/18 Requesting Physician: Sundeep Pollard Reason for Consult: Second opinion referral outpatient court ordered program Primary Care Provider: No Primary Care Physician History of Present Illness: Please see Dr. Pollard initial H&P and progress notes. Dr. Pollard is signed first opinion petition supporting referral to court ordered outpatient treatment program. Patient seen by me he remains poor insight into his disease course for compliance with medication or compliance with programs in the community thus I will cosign second opinion petition supporting referral to court ordered outpatient treatment program Review of Systems All other systems reviewed negative except as stated in HPI PMFSH - History History Provided By: Patient - Family History Family History: Family History (Last Updated 03/07/18 @ 15:25 by Alexander Stone MD) Sister Schizophrenia - Substance Use History Substance History: No History of Abuse - Travel History Recent Travel in the [place] Within the Last 8 Weeks: No Recent Travel Out of the Country Within the Last 8 Weeks: No Medications and Allergies Active Medications: Active Medications Acetaminophen (Tylenol) 650 mg PO Q4H PRN PRN Reason: Pain 1-5 or Temp >101F Last Admin: 03/13/18 20:27 Dose: 650 mg Haloperidol Lactate (Haldol Inj) 5 mg IM Q6H PRN PRN Reason: SEE DOSE INSTRUCTIONS Last Admin: 03/09/18 06:17 Dose: 5 mg Lorazepam (Ativan) 2 mg PO Q6H PRN PRN Reason: ANXIETY Lorazepam (Ativan Inj) 2 mg IM Q6H PRN PRN Reason: Anxiety, unable to take PO. Risperidone (Risperdal M-Tab) 3 mg PO BID YONATAN Last Admin: 03/14/18 08:17 Dose: 3 mg Trihexyphenidyl HCl (Artane) 2 mg PO BID YONATAN Last Admin: 03/14/18 08:19 Dose: 2 mg Trihexyphenidyl HCl (Artane) 2 mg PO BID PRN PRN Reason: EXTRA PYRAMIDAL SYMPTOMS Last Admin: 03/14/18 08:19 Dose: 2 mg Allergies Allergy/AdvReac Type Severity Reaction Status Date / Time No Known Allergies Allergy Unknown Uncoded 11/09/17 12:14 Home Medications Medication Instructions Recorded Confirmed Type No Known Home Medications 03/08/18 03/08/18 History Exam Vital signs: Vital Signs 03/13/18 17:25 03/14/18 06:00 Temperature 97.9 F 97.7 F Pulse Rate 62 66 Respiratory Rate 18 18 Blood Pressure 125/75 126/74 Pulse Oximetry 99 97 Mental Status Examination Appearance: Appropriate Consciousness: Alert, Vigilant Orientation: Person, Place (At least) Motor Activity: Other (No motoric abnormalities appreciated) Speech: Other (terse) Language: Adequate Fund of Knowledge: Adequate Attention and Concentration: Adequate Memory: Unremarkable Mood: Oppositional, Irritable Affect: Irritable, Other (Remains dysphoric) Thought Process & Associations: Intact Thought Content: Delusional Hallucination Type: None Delusion Type: Paranoid Suicidal Ideation: No (No SI voiced but unreliable to contract for safety) Suicidal Plan: No Suicidal Intention: No Homicidal Ideation: No (No HI voiced but unreliable to contract for safety) Homicidal Plan: No Homicidal Intention: No Insight: Poor Judgment: Poor Assessment and Plan - Assessment (1) Schizophrenia Code(s): F20.9 - Schizophrenia, unspecified Status: Acute - Plan Plan: Second opinion petition supporting referral to outpatient court ordered treatment program has been signed Justification for Continued Inpatient Stay: Patient continues to show poor compliance with treatment and Discharge Planning: To be determined Request Healthcare Surrogate/Guardian Advocate?: Yes (1) Schizophrenia Qualifiers: Schizophrenia type: paranoid schizophrenia Qualified Code(s): F20.0 - Paranoid schizophrenia
[2018-03-14] MEDS: Acetaminophen 325 MG Tablet PO PRN (21:09)
[2018-03-15] MEDS: risperiDONE 3 MG ODT PO SCH (08:59)
--- NOTE | 2018-03-15 10:48 | P.PNPSY ---
Subjective Remarks: Patient seen and examined with counselor and nurse. Chart reviewed. Case discussed with nursing staff who reports patient continues to minimize psychiatric symptomatology. Case discussed in treatment team. On my examination today, the patient presents as oppositional and somewhat defiant. He tells me that he is waiting to see the industrial chemicals supervisor again in 4 weeks. He says that he plans to take his medications. He does not want to speak for fear of "incriminating" himself. He remains fairly paranoid. Denies side effects from medications. No physical complaints. He is requesting a different psychiatrist. I presented the case to Dr. Khanna, and he declines the case at this time. Spoke with patient's HCS, Jacey. She notes that her sister Karen has spoken with patient on the phone and has noted some slight improvement. She would like to give the Risperdal more time. I suggest that, if patient is not significantly improved after the weekend, we switch patient to a different antipsychotic, namely Prolixin, and Jacey agrees. Vital Signs Temp Pulse Resp BP Pulse Ox 03/15/18 06:54 98.0 F 58 L 16 126/87 96 03/14/18 17:35 98 F 77 18 151/82 H 97 Refusing vitals and laboratories Review of Systems unobtainable due to mental condition (Limitation: Psychosis) Mental Status Examination Appearance: Appropriate Consciousness: Alert, Vigilant Orientation: Person, Place (At least) Motor Activity: Other (No abnormal motor movements noted) Speech: Other (Remains radha) Language: Adequate Fund of Knowledge: Adequate Attention and Concentration: Adequate Memory: Unremarkable Mood: Oppositional, Irritable Affect: Irritable, Blunt Thought Process & Associations: Intact Thought Content: Delusional Hallucination Type: None Delusion Type: Paranoid Suicidal Ideation: No (No SI voiced) Homicidal Ideation: No (No HI voiced. Unreliable to contract for safety.) Insight: Poor Judgment: Poor Assessment and Plan - Assessment (1) Schizophrenia Code(s): F20.9 - Schizophrenia, unspecified Status: Acute - Plan Plan: Titrate Risperdal to 4 mg twice daily to target psychosis. As noted above, to consider switching to Prolixin after the weekend if Risperdal does not result in adequate improvement inpatient psychotic symptoms. Continue to monitor on the inpatient unit. Continue other medications and care as ordered. Justification for Continued Inpatient Stay: Medication changes. Impairment in reality construction. High risk for decompensation in less restrictive environment. Discharge Planning: Pending psychiatric stabilization Request Healthcare Surrogate/Guardian Advocate?: Yes (1) Schizophrenia Qualifiers: Schizophrenia type: paranoid schizophrenia Qualified Code(s): F20.0 - Paranoid schizophrenia
[2018-03-15] MEDS: risperiDONE 2 MG ODT PO SCH ×2 (17:04→21:38)
[2018-03-16] MEDS: risperiDONE 2 MG ODT PO SCH ×2 (12:10→20:36)
--- NOTE | 2018-03-16 15:20 | P.PNPSY ---
Subjective Chief Complaint: Schizophrenia Remarks: Chart reviewed and discussed with nursing staff. Rounded on patient with Delfina CASTRO. Patient is in his bed in room 2711A. He appears very angry and irritable. He denies any auditory or visual hallucinations. He denies any paranoia or delusion. He states that his medications are too high and making him too sleepy. Staff reports that he has participated in activities on the unit and that he has been in the common area watching television. He is very seclusive and does not interact with others. Review of Systems All other systems reviewed negative except as stated in HPI Mental Status Examination Appearance: Appropriate Consciousness: Alert, Vigilant Orientation: Person, Place (At least) Motor Activity: Other (No abnormal motor movements noted) Speech: Other (Remains radha) Language: Adequate Fund of Knowledge: Adequate Attention and Concentration: Adequate Memory: Unremarkable Mood: Oppositional, Irritable Affect: Irritable, Blunt Thought Process & Associations: Intact Thought Content: Delusional Hallucination Type: None Delusion Type: Paranoid Suicidal Ideation: No (No SI voiced) Suicidal Plan: No Suicidal Intention: No Homicidal Ideation: No (No HI voiced. Unreliable to contract for safety.) Homicidal Plan: No Homicidal Intention: No Insight: Poor Judgment: Poor Assessment and Plan - Assessment (1) Schizophrenia Code(s): F20.9 - Schizophrenia, unspecified Status: Acute - Plan Plan: Per psychiatrist titrate Risperdal to 4 mg twice daily to target psychosis. As noted above, to consider switching to Prolixin after the weekend if Risperdal does not result in adequate improvement inpatient psychotic symptoms. Continue to monitor on the inpatient unit. Continue other medications and care as ordered. Justification for Continued Inpatient Stay: Patient is at moderate risk for decompensation if placed in a lower level unit. Discharge Planning: Discharge planning in progress. Request Healthcare Surrogate/Guardian Advocate?: Yes (1) Schizophrenia Qualifiers: Schizophrenia type: paranoid schizophrenia Qualified Code(s): F20.0 - Paranoid schizophrenia
[2018-03-17] MEDS: risperiDONE 2 MG ODT PO SCH ×2 (08:49→21:03)
--- NOTE | 2018-03-17 16:23 | P.PNPSY ---
Subjective Chief Complaint: Schizophrenia Remarks: Reviewed electronic medical records and discussed case with staff. Follow-up was conducted in the day room. His nurse reports that he has been seclusive and irritable. Patient advises that he has been sleeping well and has a good appetite. He reports that he feels "the same as when I came and". I do note his irritable affect during the interview. I do not note any internal stimulation or thought blocking. Mental Status Examination Appearance: Appropriate Consciousness: Alert, Vigilant Orientation: Person, Place (At least) Motor Activity: Other (No abnormal motor movements noted) Speech: Other (Remains radha) Language: Adequate Fund of Knowledge: Adequate Attention and Concentration: Adequate Memory: Unremarkable Mood: Oppositional, Irritable Affect: Irritable, Blunt Thought Process & Associations: Intact Thought Content: Delusional Hallucination Type: None Delusion Type: Paranoid Suicidal Ideation: No (No SI voiced) Suicidal Plan: No Suicidal Intention: No Homicidal Ideation: No (No HI voiced. Unreliable to contract for safety.) Homicidal Plan: No Homicidal Intention: No Insight: Poor Judgment: Poor Assessment and Plan - Assessment (1) Schizophrenia Code(s): F20.9 - Schizophrenia, unspecified Status: Acute - Plan Plan: Patient will be reevaluated tomorrow by the attending psychiatrist. Continue with current treatment plan. Justification for Continued Inpatient Stay: Moving this patient to a less restrictive environment would likely result in decompensation. Request Healthcare Surrogate/Guardian Advocate?: Yes (1) Schizophrenia Qualifiers: Schizophrenia type: paranoid schizophrenia Qualified Code(s): F20.0 - Paranoid schizophrenia
[2018-03-18] MEDS: risperiDONE 2 MG ODT PO SCH (08:25)
--- NOTE | 2018-03-18 09:25 | P.PNPSY ---
Subjective Chief Complaint: Schizophrenia Remarks: Patient seen and examined with nurse. Chart reviewed. Case discussed with nursing staff who reports patient is seclusive, mumbling to himself and agitated /irritable. No suspicion of covert medication nonadherence by nursing staff. On my examination today, the patient does not seem significantly improved status post titration of his Risperdal dose. He remains paranoid and irritable. Although he denies suicidal or homicidal ideation he seems unreliable to contract for safety. He tells me "I am against medicines." No side effects from medications. No physical complaints. Spoke with patient's healthcare surrogate over the phone. She agrees that changing antipsychotic therapy as appropriate at this juncture. After a discussion of the patient's options in this regard, we settle on a trial of Prolixin, and I have obtained consent for Prolixin as well as Prolixin Decanoate. Review of Systems All other systems reviewed negative except as stated in HPI (Limitation: Poor historian) Mental Status Examination Appearance: Appropriate Consciousness: Alert, Vigilant Orientation: Person, Place (At least) Motor Activity: Other (No motor abnormalities noted) Speech: Other (Terse) Language: Adequate Fund of Knowledge: Adequate Attention and Concentration: Adequate Memory: Unremarkable Mood: Oppositional, Irritable Affect: Irritable, Blunt Thought Process & Associations: Intact Thought Content: Delusional Hallucination Type: None Delusion Type: Paranoid Suicidal Ideation: No (Unreliable to contract for safety) Suicidal Plan: No Suicidal Intention: No Homicidal Ideation: No (Unreliable to contract for safety) Homicidal Plan: No Homicidal Intention: No Insight: Poor Judgment: Poor Assessment and Plan - Assessment (1) Schizophrenia Code(s): F20.9 - Schizophrenia, unspecified Status: Acute - Plan Plan: Discontinue Risperdal due to lack of efficacy. Initiate Prolixin with plans to transition to Prolixin Decanoate. Since the patient is not antipsychotic germaine and was tolerating a robust dose of Risperdal, I will start Prolixin at 5 mg 3 times daily with plans to titrate to effect. Continue to monitor on the high acuity unit. Continue other medications and care as ordered. Justification for Continued Inpatient Stay: Med changes. Impairment in reality construction. High risk for decompensation in less restrictive environment. Discharge Planning: Pending psychiatric stabilization Request Healthcare Surrogate/Guardian Advocate?: Yes (1) Schizophrenia Qualifiers: Schizophrenia type: paranoid schizophrenia Qualified Code(s): F20.0 - Paranoid schizophrenia
--- NOTE | 2018-03-19 10:43 | P.PNPSY ---
Subjective Chief Complaint: Schizophrenia Remarks: Patient seen and examined with nurse. Chart reviewed. Case discussed with nursing staff. No behavioral issues noted overnight. Case discussed in treatment team. On my examination today, I find the patient out for fresh air. He is socializing with some other patients. He seems somewhat more at ease today. Less paranoid and less internally stimulated. Seems to be doing better overall with the Prolixin. Insight into mental illness and need for treatment remains quite poor though. No side effects from medications. No physical complaints. Vital Signs Temp Pulse Resp BP Pulse Ox 03/19/18 05:57 97.5 F L 68 18 133/85 96 03/18/18 17:06 98.3 F 92 H 166/96 H 98 Labs reviewed. No new labs. Review of Systems All other systems reviewed negative except as stated in HPI Mental Status Examination Appearance: Appropriate Consciousness: Alert Orientation: Person, Place (At least) Motor Activity: Other (No abnormal motor movements noted) Speech: Unremarkable Language: Adequate Fund of Knowledge: Adequate Attention and Concentration: Adequate Memory: Unremarkable Mood: Other (Calm) Affect: Blunt, Other (Perhaps a slight irritable edge) Thought Process & Associations: Intact Thought Content: Delusional Hallucination Type: None Delusion Type: Paranoid (Less prominent) Suicidal Ideation: No Homicidal Ideation: No Insight: Poor Judgment: Poor Assessment and Plan - Assessment (1) Schizophrenia Code(s): F20.9 - Schizophrenia, unspecified Status: Acute - Plan Plan: Continue Prolixin as ordered. Could consider titrating the dose tomorrow if needed to manage residual symptoms. Plan for transition to Prolixin Dec. continue to monitor on the inpatient unit. Continue other medications and care as ordered. Justification for Continued Inpatient Stay: Risk for decompensation in less restrictive environment. Discharge Planning: Possible discharge later in the week Request Healthcare Surrogate/Guardian Advocate?: Yes (1) Schizophrenia Qualifiers: Schizophrenia type: paranoid schizophrenia Qualified Code(s): F20.0 - Paranoid schizophrenia
--- NOTE | 2018-03-20 11:17 | P.PNPSY ---
Subjective Chief Complaint: Schizophrenia Remarks: Patient seen and examined with nurse. Chart reviewed. Case discussed with nursing staff. Patient noted to be medication compliant, no real behavioral problem. On my examination today, patient seems to be improving somewhat with Prolixin. He is not as guarded and does not immediately shut down the conversation by saying that he is waiting for the next court date, as he has in the past. He denies any SI or HI. Denies any AVH. Remains resistant to medications though, and insight into mental illness and need for treatment remains quite poor. No reported medication side effects. No physical complaints. Vital Signs Temp Pulse Resp BP Pulse Ox 03/20/18 05:53 98.3 F 65 18 124/72 98 03/19/18 18:22 97.0 F L 76 17 133/71 97 Labs reviewed. No new labs. Review of Systems All other systems reviewed negative except as stated in HPI Mental Status Examination Appearance: Appropriate Consciousness: Alert Orientation: Person, Place (At least) Motor Activity: Other (No motor abnormalities noted) Speech: Unremarkable Language: Adequate Fund of Knowledge: Adequate Attention and Concentration: Adequate Memory: Unremarkable Mood: Other (Calm) Affect: Blunt Thought Process & Associations: Intact Thought Content: Delusional (Decreasing) Hallucination Type: None Delusion Type: Other (Mildly guarded) Suicidal Ideation: No Suicidal Plan: No Suicidal Intention: No Homicidal Ideation: No Homicidal Plan: No Homicidal Intention: No Insight: Poor Judgment: Poor Assessment and Plan - Assessment (1) Schizophrenia Code(s): F20.9 - Schizophrenia, unspecified Status: Acute - Plan Plan: Titrate Prolixin to 7.5 mg 3 times daily to target residual psychotic symptoms. Plan for Prolixin Decanoate. Continue to monitor on the inpatient unit. Continue other medications and care as ordered. Justification for Continued Inpatient Stay: Risk for decompensation in less restrictive environment. Discharge Planning: Patient does seem to be improving. Possible discharge next 1-2 days. Request Healthcare Surrogate/Guardian Advocate?: Yes (1) Schizophrenia Qualifiers: Schizophrenia type: paranoid schizophrenia Qualified Code(s): F20.0 - Paranoid schizophrenia
--- NOTE | 2018-03-21 11:51 | P.PNPSY ---
Subjective Chief Complaint: Schizophrenia Remarks: Patient seen and examined with counselor and nurse. Chart reviewed. Case discussed with nursing staff. No behavioral issues noted overnight. On my examination today, the patient is sitting calmly in the day area. He denies any SI or HI. Denies AVH. Less paranoid today. No side effects from medications. No physical complaints. Vital Signs Temp Pulse Resp BP Pulse Ox 03/21/18 06:20 97.8 F 69 18 147/93 H 99 03/20/18 15:56 98.3 F 87 124/76 97 Labs reviewed. Review of Systems All other systems reviewed negative except as stated in HPI Mental Status Examination Appearance: Appropriate Consciousness: Alert Orientation: Person, Place (At least) Motor Activity: Other (No abnormal motor movements noted) Speech: Unremarkable Language: Adequate Fund of Knowledge: Adequate Attention and Concentration: Adequate Memory: Unremarkable Mood: Other (Calm) Affect: Blunt Thought Process & Associations: Intact Thought Content: Appropriate Hallucination Type: None Delusion Type: None (No delusional material verbalized today) Suicidal Ideation: No Suicidal Plan: No Suicidal Intention: No Homicidal Ideation: No Homicidal Plan: No Homicidal Intention: No Insight: Poor Judgment: Poor Assessment and Plan - Assessment (1) Schizophrenia Code(s): F20.9 - Schizophrenia, unspecified Status: Acute - Plan Plan: Patient improving with Prolixin. I will initiate Prolixin decanoate 25 mg IM and continue oral Prolixin supplementation. Patient is approaching maximal benefit from this hospital stay. Anticipate discharge tomorrow. Continue to monitor on the inpatient unit in the meantime. Continue other medications and care as ordered. Justification for Continued Inpatient Stay: Med change Discharge Planning: Anticipate discharge home tomorrow. Case discussed with counselor. Request Healthcare Surrogate/Guardian Advocate?: Yes (1) Schizophrenia Qualifiers: Schizophrenia type: paranoid schizophrenia Qualified Code(s): F20.0 - Paranoid schizophrenia
--- NOTE | 2018-03-22 10:13 | P.DSPSY ---
Psychiatry Discharge Summary Inpatient Psychiatric care?: Yes Advance Directives: No Mental Health Advance Directive: Unknown Health Care Proxy: Unknown - Admission Admission Date: March 07, 2018 08:59 - Admission Diagnosis (1) Schizophrenia Code(s): F20.9 - Schizophrenia, unspecified Brief History: The patient is a 47-year-old -[place] man, formerly [facility] in [facility], single, unemployed, with extensive psychiatric history of schizophrenia, previous psychiatric hospitalizations, he was hospitalized here under the care of Dr. Pollard in early 2017, documentation reviewed, noncompliant with medications, no significant medical history, who comes into the emergency department under exparte for psychiatric evaluation. Patient states he is uncertain as to why he is here. States he showed up at home from work and found a police there with an exparte. Patient states he has been cooperative. Patient is refusing all medical treatment at this time. Patient does not want blood draws. Denies any medical complaints or concerns at this time outside of not wanting to be here. Patient appears somewhat agitated. EMR was reviewed. No collateral information available at this moment. On my psychiatric evaluation I find the patient that is oppositional, defiant, he stated that he does not need to be here and he wants to be discharged. The patient initially states that he does not have any psychiatric problem, that he has been is diagnosed with schizophrenia, he is kind of grandiose, and stated that he has a bachelor's degree, that he is smarter that everybody here there is no reason to keep him in this place. The patient is kind of verbally hostile, refusing to answer many of my questions. Had to be redirected in multiple locations. The patient reports that he does not want to answer my questions because "you are making a report against me". As per ER staff the patient has being kind of agitated, pacing back and forth in the unit, but he has not been aggressive or agitated so far Tobacco Use In Past 30 Days: No How Often Do You Have a Drink Containing Alcohol: Monthly or less Hospital Course: Patient was admitted to a locked, inpatient psychiatric unit. Appropriate precautions were in place throughout patient's hospital stay. Patient was seen and examined on the unit by psychiatry and also visited by counselor. Psychotropic medications were adjusted. Patient was started on long-acting injectable Prolixin Decanoate. There is no evidence of suicidality or homicidality on the inpatient unit. There was no evidence of self-care deficit. A petition was completed for involuntary outpatient commitment and this will be placed on the docket for next , 03/28/18. On the day of discharge: Patient seen and examined with nurse. Chart reviewed. Case discussed with nursing staff. No behavioral issues noted overnight. Case discussed in treatment team. On my examination today, the patient wishes to leave the hospital today. He denies any suicidal or homicidal ideation, intent or plan and contracts for safety. I can elicit no depressive or hypomanic/ manic symptoms. He denies any audiovisual hallucinations. I can elicit no delusional beliefs. He denies side effects from medications. Education provided regarding discharge medication regimen. No physical complaints. Weighing the relevant factors and based on the available evidence, I agricultural pilot that the patient no longer meets criteria for involuntary psychiatric hospitalization. There is no evidence of imminent risk of harm to self or others, nor is there significant self-care deficit to substantiate involuntary psychiatric hospitalization. The patient is requesting discharge from the inpatient psychiatric unit today, and I have no basis to retain him over his objection. Patient will be discharged home today with psychiatric follow-up as arranged by counselor. Patient is also to follow up with primary care. I have counseled the patient regarding warning signs for need to return to the psychiatric emergency room as part of a general safety plan. - Discharge Discharge Date: 03/22/18 - Discharge Diagnosis (1) Schizophrenia Diagnosis: Principal (Stabilized) Code(s): F20.9 - Schizophrenia, unspecified Status: Acute Discharge Disposition: Home - Discharge Instructions Discharge Diet: Regular Diet Activities You Can Perform: Weight Bearing As Tolerat - Discharge Time <= 30 minutes Mental Status Examination Appearance: Appropriate Consciousness: Alert Orientation: x4 Motor Activity: Other (No motoric abnormalities noted) Speech: Unremarkable Language: Adequate Fund of Knowledge: Adequate Attention and Concentration: Adequate Memory: Unremarkable Mood: Appropriate Affect: Blunt Thought Process & Associations: Intact Thought Content: Appropriate Hallucination Type: None Delusion Type: None Suicidal Ideation: No Suicidal Plan: No Suicidal Intention: No Homicidal Ideation: No Homicidal Plan: No Homicidal Intention: No Insight: Poor Judgment: Poor Discharge/Advance Care Plan - Results Vital Signs: Last Vital Signs Temp 98.1 F 03/22/18 06:19 Pulse 71 03/22/18 06:19 Resp 18 03/22/18 06:19 BP 128/90 03/22/18 06:19 Pulse Ox 99 03/22/18 06:19 Lab Results: Laboratory Tests 03/06/18 17:31 Urine Opiates Screen Neg Ur Barbiturates Screen Neg Ur Amphetamines Screen Neg U Benzodiazepines Scrn Neg Urine Cocaine Screen Neg U Cannabinoids Screen Neg Summary of Procedures: None done Pending Results: None - Medications Number of antipsychotic medications at discharge: 1 - Discharge Care Plan Goals to Promote Your Health: * To prevent worsening of your condition and complications * To maintain your health at the optimal level Directions to Meet Your Goals: Take your medications as prescribed Follow your dietary instruction Follow activity as directed Keep your appointments as scheduled Take your immunizations and boosters as scheduled If your symptoms worsen call your PCP, if no PCP go to Urgent Care Center or Emergency Room For 19/03 questions related to your inpatient stay or results of tests pending at discharge, please contact Dr. Sundeep Pollard MD at Smoking is Dangerous to Your Health. Avoid second hand smoking (1) Schizophrenia Qualifiers: Schizophrenia type: paranoid schizophrenia Qualified Code(s): F20.0 - Paranoid schizophrenia (1) Schizophrenia Qualifiers: Schizophrenia type: paranoid schizophrenia Qualified Code(s): F20.0 - Paranoid schizophrenia
== END 2018-03-22 12:00 | disposition home or self-care (01) ==
LOC: NEDAMB 16:43 → H270 03-07 08:59 → NEPJ 03-07 09:37 → H270 03-09 12:45
PROVIDERS: ADMIT Psychiatry & Neurology Psychiatry; ATTEND Psychiatry & Neurology Psychiatry